=== PATIENT | male | born 1940 | race Caucasian/White ===

== ENCOUNTER 2022-06-19 20:04 | Inpatient (IN) | payer BC, SELFPAY ==
[2022-06-19] VITALS (13 sets, daily range): BP systolic 143–194; BP diastolic 84–155; PULSE 78–87; RESP 18; TEMP 36.9; O2SAT 98–100; BMI 25.8
--- NOTE | 2022-06-19 20:28 | CRLHL7_ITS ---
For Patients: As a result of the Century Cures Act, medical imaging exams and procedure reports are released immediately into your electronic medical record. You may view this report before your referring provider. If you have questions, please contact your health care provider. INDICATION: Mid abdominal pain. History of right middle lobe lung nodule. COMPARISON: Pet/CT scan from 09/04/2021 TECHNIQUE: CT examination of the abdomen and pelvis was performed with the uneventful intravenous administration of 75 cc of Isovue 370 while 3 mm thick axial sections were obtained from the lung bases through the pubic symphysis. Oral contrast was not administered. Please note that all CT scans at this facility use dose modulation, iterative reconstruction, and/or weight-based dosing when appropriate to reduce radiation dose to as low as reasonably achievable. FINDINGS: There is a now moderate amount of fecal material distributed throughout the colon consistent with new constipation. There is a new large amount of fecal material in the rectum consistent with fecal impaction. In the abdomen, the liver, spleen, pancreas, and adrenals are normal in appearance. The kidneys are normal in appearance. The gallbladder is normal in appearance. The abdominal aorta is normal in caliber with no sign of dilatation. There is no sign of retroperitoneal mass or adenopathy. Again seen is a small hiatal hernia. Again seen are several lines of surgical josh in the gastric fundus consistent with gastric bypass surgery. A small bowl anastamosis is again seen in the left upper quadrant with no sign of stricture. The distal stomach, the rest of the loops of small bowel, and colon in the abdomen are normal in appearance. In the pelvis, the appendix is nonvisualized, but there is no sign of an inflammatory process in the area of the appendix. There is new herniation of a loop of mildly distended small bowel into the right inguinal hernia which has increased in size and is now moderately enlarged. There is mild dilatation of the small bowel proximal to the hernia, indicating mild partial small bowel obstruction. There is no change in a small fat containing left inguinal hernia. Again seen is moderate sigmoid diverticulosis with no sign of diverticulitis. The prostate remains prominently enlarged and is otherwise normal in appearance. The urinary bladder is normal in appearance. There is no sign of pelvic or inguinal mass or adenopathy. There is no sign of free air or free fluid in the abdomen or pelvis. There is stable appearance of the bilobed nodule in the inferior right middle lobe measuring 2.1 x 1.1 centimeters. This was seen to have a very high uptake of radiotracer on the previous PET/CT scan. The persistence of these nodules is consistent with malignancy. There is stable mild curvilinear scarring in the posterior right lower lung. The rest of the chest is clear. Again seen is minimal scoliosis of the lumbar spine convex towards the left. There is moderate disc degenerative disease throughout the lumbar spine. Again seen are mild focal superior and inferior L4 endplate fractures. There is no sign of lytic or blastic lesions to suggest metastatic disease to the bone. IMPRESSION: No change in bilobed spiculated nodule in the anterior-lateral inferior right middle lobe, consistent with pulmonary malignancy. CT of the pelvis shows new herniation of a short loop of moderately distended small bowel into the right inguinal hernia which has increased in size and is now moderate in size. Mild dilatation of a short segment of small bowel proximal to the hernia indicating mild partial small bowel obstruction. New large amount of fecal material in the rectum consistent with fecal impaction. Stable prominent enlargement of the prostate. Stable moderate sigmoid diverticulosis with no sign of diverticulitis. CT of the abdomen shows stable changes of gastric bypass surgery. Stable small hiatal hernia. New findings of constipation. Please note that all CT scans at this facility use dose modulation, iterative reconstruction, and/or weight-based dosing when appropriate to reduce radiation dose to as low as reasonably achievable. Dictated by Abhay Mcginnis MD @ 06/19/2022 10:13:16 PM (Electronically Signed)
--- NOTE | 2022-06-19 20:56 | ED.ABDPAIN ---
HPI - Abdominal Pain General Chief Complaint: Abdominal Pain Stated Complaint: Possible hernia attack Time Seen by Provider: 06/19/22 20:19 History of Present Illness HPI narrative: Pt is a 81 year old gentleman in town visiting family who presents with 6 hours of abd pain in the mid abd. Pt was to have surgery for a hernia in [place] but could not as his did not have appropriate paperwork as pt has dementia. Pt has not had a bowel movement for several days. Pt is not sure if he has been passing gas. The pain is severe and in the mid abd. No fever, nausea or vomiting. Pt has had no cough or shortness of breath. Pt unable to get comfortable but does not appear to have taken any medication for the pain at home. Pt has had similar presentations in [place] which led to his scheduled surgery which was not perfomed. Related Data Allergies Allergy/AdvReac Type Severity Reaction Status Date / Time No Known Drug Allergies Allergy Verified 06/19/22 20:21 Review of Systems Status of ROS Reports: 10 or more systems reviewed and unremarkable except as noted in History and below [facility] Medical History (Updated 06/19/22 @ 23:38 by Addi Bautista MD) Dementia Diabetes type 2, controlled Surgical History (Updated 06/19/22 @ 22:22 by Addi Bautista MD) Bariatric surgery status Total knee replacement status Exam Narrative: Exam Narrative: EXAM GENERAL: Patient appears uncomfortable. EYES: No scleral icterus. THYROID: no thyroid nodules or thyromegaly. LYMPH: No supraclavicular or cervical lymphadenopathy. SKIN: Visible skin seen during exam normal or with benign process only. EXT: No dependent lower extremity pedal edema. HEART: Regular rate and rhythm with no murmurs, rubs, or gallops. LUNGS: Clear to auscultation bilaterally with no crackles or wheezes. ABD: Mildly distended with diffuse tenderness to palpation. PSYCH: Good eye contact, speech is not pressured. Const: Vital Signs, click to edit/add: Vital Signs - 24 hr 06/19/22 20:19 06/19/22 21:43 06/19/22 21:47 Temperature 98.4 F Pulse Rate 84 87 Pulse Rate [Right Pulse Oximeter] 84 Respiratory Rate 18 Blood Pressure 190/155 H Blood Pressure [Ri ght Upper Arm] 180/84 H Pulse Oximetry 99 99 100 Oxygen Delivery Me thod Room Air 06/19/22 22:00 06/19/22 22:02 06/19/22 22:30 Temperature Pulse Rate 87 83 78 Pulse Rate [Right Pulse Oximeter] Respiratory Rate Blood Pressure 171/126 H Blood Pressure [Ri ght Upper Arm] Pulse Oximetry 98 99 99 Oxygen Delivery Me thod 06/19/22 22:32 06/19/22 23:03 06/19/22 23:04 Temperature Pulse Rate 81 83 Pulse Rate [Right Pulse Oximeter] Respiratory Rate Blood Pressure 143/106 H 194/121 H Blood Pressure [Ri ght Upper Arm] Pulse Oximetry 99 98 Oxygen Delivery Me thod Course Course Hospital Course: Pt seen and examined. CT abd pelvis, urinalysis, cbc, amylase, comp panel ordered. Reevaluation(s) Reevaluation #1: Labs and CT reviewed Time: 23:35 Consultations Consultation #1: Case discussed with Dr Moseley General Surgery and Dr. Hurtado Hospitalist Vital Signs Vital signs: Initial Vital Signs Temperature 98.4 F 06/19/22 20:19 Temperature Source Temporal Artery Scan 06/19/22 20:19 Pulse Rate 84 06/19/22 20:19 Respiratory Rate 18 06/19/22 20:19 Blood Pressure 180/84 H 06/19/22 20:19 Blood Pressure Mean 116 06/19/22 20:19 Blood Pressure Position Sitting 06/19/22 20:19 Pulse Oximetry 99 06/19/22 20:19 Oxygen Delivery Method 06/19/22 20:19 Vital Signs Temperature 98.4 F 06/19/22 20:19 Pulse Rate 84 06/19/22 20:19 Respiratory Rate 18 06/19/22 20:19 Blood Pressure 180/84 H 06/19/22 20:19 Pulse Oximetry 99 06/19/22 20:19 Oxygen Delivery Method 06/19/22 20:19 Temperature 98.4 F 06/19/22 20:19 Pulse Rate 83 06/19/22 23:04 Respiratory Rate 18 06/19/22 20:19 Blood Pressure 194/121 H 06/19/22 23:03 Pulse Oximetry 98 06/19/22 23:04 Oxygen Delivery Method 06/19/22 20:19 MDM - Abdominal Pain MDM Narrative Medical decision making narrative: Pt with a history of r inguinal hernia presents with incarcerated hernia on CT with abd pain starting today. Pt seen and examined. CT and labs personally reviewed. Attempts made to reduce hernia. General surgery called and pt prepped for surgery. Lung lesion noted on CT appears to be chronic scar tissue per chart review. Differential Diagnosis Differential diagnosis: Likely abdominal pain, acute appendicitis, calculus of kidney, constipation, diverticulitis, gastroenteritis, pancreatitis and small bowel obstruction Lab Data Labs: Lab Results 06/19/22 06/19/22 06/19/22 Range/Units 20:26 21:03 21:03 WBC 6.87 (4.50-11.00) K/uL RBC 4.57 (4.30-5.90) m/uL Hgb 14.6 (13.5-17.5) gm/dL Hct 42.7 (37.0-53.0) % MCV 93 (80-100) fL MCH 32 (26-34) pg MCHC 34 (32-36) gm/dL RDW Coeff of Elias 12.2 (11.5-15.5) % Plt Count 170 (140-440) K/uL Neut % (Auto) 75.0 H (42.0-72.0) % Lymph % (Auto) 18.9 L (20-44) % [place] % (Auto) 4.2 (0.0-11.0) % Eos % (Auto) 0.9 (0.0-7.0) % Baso % (Auto) 0.3 (0.0-3.0) % Neut # (Auto) 5.20 (1.7-7.0) K/uL Lymph # (Auto) 1.30 (0.90-2.90) K/uL [place] # (Auto) 0.30 (0.00-0.90) K/UL Eos # (Auto) 0.06 (0.00-0.50) K/uL Baso # (Auto) 0.02 (0.00-0.30) K/uL Abs Immat Gran (auto) 0.05 (0.00-0.30) K/uL Imm/Tot Granulo (auto) 0.7 % Sodium 134 L (135-149) mmol/L Potassium 4.3 (3.6-5.1) mmol/L Chloride 99 (96-114) mmol/L Carbon Dioxide 26 (20-32) mmol/L BUN 18 (7-30) mg/dL Creatinine 0.8 (0.5-1.5) mg/dL Estimated Creat Clear 52.10 Estimated GFR 90 ml/min Glucose 242 H (60-115) mg/dL Lactate (0.5-1.9) mmol/L Calcium 9.2 (8.4-10.6) mg/dL Total Bilirubin 1.1 (0.1-1.5) mg/dL AST 25 (12-35) U/L ALT 21 (4-50) U/L Alkaline Phosphatase 73 (40-150) U/L Total Protein 7.7 (6.0-8.3) g/dL Albumin 4.9 (3.3-5.0) g/dL Amylase (18-89) U/L Urine Color Yellow (Yellow) Urine Appearance Clear (Clear) Urine pH 7.0 (5.0-8.5) Ur Specific [place] 1.020 (1.000-1.030) Urine Protein 1+ A (Negative) Urine Glucose (UA) 1+ A (Negative) Urine Ketones 2+ A (Negative) Urine Blood Negative (Negative) Urine Nitrite Negative (Negative) Urine Bilirubin Negative (Negative) Urine Urobilinogen 1.0 (0.2-1.0) Ur Leukocyte Esterase Negative (Negative) Urine RBC 0-2 (0-2) Urine WBC 0-2 (0-5) Ur Squamous Epith Cells None (None-Few) Urine Bacteria None (None) POC Creatinine (0.6-1.3) mg/dl 06/19/22 06/19/22 06/19/22 Range/Units 21:03 21:03 21:03 WBC (4.50-11.00) K/uL RBC (4.30-5.90) m/uL Hgb (13.5-17.5) gm/dL Hct (37.0-53.0) % MCV (80-100) fL MCH (26-34) pg MCHC (32-36) gm/dL RDW Coeff of Elias (11.5-15.5) % Plt Count (140-440) K/uL Neut % (Auto) (42.0-72.0) % Lymph % (Auto) (20-44) % [place] % (Auto) (0.0-11.0) % Eos % (Auto) (0.0-7.0) % Baso % (Auto) (0.0-3.0) % Neut # (Auto) (1.7-7.0) K/uL Lymph # (Auto) (0.90-2.90) K/uL [place] # (Auto) (0.00-0.90) K/UL Eos # (Auto) (0.00-0.50) K/uL Baso # (Auto) (0.00-0.30) K/uL Abs Immat Gran (auto) (0.00-0.30) K/uL Imm/Tot Granulo (auto) % Sodium (135-149) mmol/L Potassium (3.6-5.1) mmol/L Chloride (96-114) mmol/L Carbon Dioxide (20-32) mmol/L BUN (7-30) mg/dL Creatinine (0.5-1.5) mg/dL Estimated Creat Clear Estimated GFR ml/min Glucose (60-115) mg/dL Lactate 2.8 H (0.5-1.9) mmol/L Calcium (8.4-10.6) mg/dL Total Bilirubin (0.1-1.5) mg/dL AST (12-35) U/L ALT (4-50) U/L Alkaline Phosphatase (40-150) U/L Total Protein (6.0-8.3) g/dL Albumin (3.3-5.0) g/dL Amylase 73 (18-89) U/L Urine Color (Yellow) Urine Appearance (Clear) Urine pH (5.0-8.5) Ur Specific [place] (1.000-1.030) Urine Protein (Negative) Urine Glucose (UA) (Negative) Urine Ketones (Negative) Urine Blood (Negative) Urine Nitrite (Negative) Urine Bilirubin (Negative) Urine Urobilinogen (0.2-1.0) Ur Leukocyte Esterase (Negative) Urine RBC (0-2) Urine WBC (0-5) Ur Squamous Epith Cells (None-Few) Urine Bacteria (None) POC Creatinine 1.0 (0.6-1.3) mg/dl Discharge Plan Discharge Clinical Impression: Incarcerated hernia Patient Disposition: Admitted As Inpatient Condition: Stable Activity Level: Other Discharge Diet: Other
[2022-06-19 21:22] LABS: Basophils Absolute Auto 0.02 K/uL (0.00-0.30); Basophils Percent Auto 0.3 % (0.0-3.0); Eosinophils Absolute Auto 0.06 K/uL (0.00-0.50); Eosinophils Percent Auto 0.9 % (0.0-7.0); Hematocrit 42.7 % (37.0-53.0); Hemoglobin* 14.6 gm/dL (13.5-17.5); Immature Granulocytes Abs Auto 0.05 K/uL (0.00-0.30); Immature Granulocytes Pct Auto 0.7 %; Lymphocytes Percent Auto 18.9 % (20-44); Mean Corpuscular HGB Conc 34 gm/dL (32-36); Mean Corpuscular Hemoglobin 32 pg (26-34); Mean Corpuscular Volume 93 fL (80-100); Monocytes Percent Auto 4.2 % (0.0-11.0); Platelet Count* 170 K/uL (140-440); RDW Coefficient of Variation % 12.2 % (11.5-15.5); Red Blood Count 4.57 m/uL (4.30-5.90); White Blood Count* 6.87 K/uL (4.50-11.00)
[2022-06-19 21:23] LABS: Appearance Urine Clear (Clear); Bilirubin Urine Negative (Negative); Blood Urine Negative (Negative); Color Urine Yellow (Yellow); Glucose Urine 1+ (Negative); Ketones Urine 2+ (Negative); Leukocyte Esterase Urine Negative (Negative); Nitrite Urine Negative (Negative); Protein Urine 1+ (Negative)
[2022-06-19 21:30] LABS: Slide Review Reflex No
[2022-06-19 21:34] LABS: RBC Urine 0-2 (0-2); WBC Urine 0-2 (0-5)
[2022-06-19] MEDS: KETOROLAC 30 MG/ML inj IVP (21:37)
[2022-06-19 21:38] LABS: Albumin* 4.9 g/dL (3.3-5.0); Chloride* 99 mmol/L (96-114); Sodium* 134 mmol/L (135-149)
[2022-06-19] MEDS: 0.9 % SODIUM CHLORIDE 1000 ml 1,000 ML IV (21:38)
[2022-06-19 21:39] LABS: Potassium* 4.3 mmol/L (3.6-5.1)
[2022-06-19 21:41] LABS: Alkaline Phosphatase* 73 U/L (40-150); Aspartate Amino Transferase* 25 U/L (12-35); Bilirubin Total* 1.1 mg/dL (0.1-1.5); Blood Urea Nitrogen* 18 mg/dL (7-30); Carbon Dioxide* 26 mmol/L (20-32); Creatinine* 0.8 mg/dL (0.5-1.5); Estimated Glomerular Filt Rate 90 ml/min; Total Protein* 7.7 g/dL (6.0-8.3)
[2022-06-19 21:42] LABS: Alanine Aminotransferase* 21 U/L (4-50); Calcium* 9.2 mg/dL (8.4-10.6); Glucose* 242 mg/dL (60-115)
[2022-06-19 21:51] LABS: Amylase* 73 U/L (18-89)
[2022-06-19 22:25] LABS: Lactate* 2.8 mmol/L (0.5-1.9)
--- NOTE | 2022-06-19 23:22 | P.GSCN_ITS ---
History of Present Illness Consult details Date Seen: 06/19/22 Consult date: 06/19/22 Narrative: Patient was brought to the emergency department by his for worsening right groin pain. Patient does have a history of dementia and is a poor historian. Per the the pain started earlier today. He has had pain in this area before, with the known hernia on that side. As the pain continued to worsen throughout the day she came into the emergency department. Denies any vomiting. Last ate before noon. Patient has also been suffering from constipation with the thinking his last bowel movement was 4 days earlier. Per the his surgical history is positive for gastric bypass and a hernia repair, although she is unsure if it was the right or left side. They do live in the [facility], but are staying here with family until the of the year. Review of Systems Status of ROS: Reports: unobtainable due to mental status [facility] Medical History Dementia Diabetes type 2, controlled Surgical History Bariatric surgery status Total knee replacement status Meds Home Medications and Allergies Allergies Allergy/AdvReac Type Severity Reaction Status Date / Time No Known Drug Allergies Allergy Verified 06/19/22 20:21 Exam Narrative: Exam Narrative: General: Alert, no acute distress and nontoxic in appearance Respiratory: Equal breath rise bilaterally, maintained on room air CV: Regular rhythm rate, well perfused Abdomen: Soft, nontender and nondistended. Genitourinary: Right groin tenderness to palpation. Evidence of incarceration within a right hernia sac, unable to be reduced. Const: Vital Signs, click to edit/add: Vital Signs - 24 hr 06/19/22 20:19 Temperature 98.4 F Pulse Rate [Right Pulse Oximeter] 84 Respiratory Rate 18 Blood Pressure [Ri ght Upper Arm] 180/84 H Pulse Oximetry 99 Oxygen Delivery Me thod Room Air Results Labs Labs: Abnormal lab results 06/19/22 06/19/22 06/19/22 Range/Units 20:26 21:03 21:03 Neut % (Auto) 75.0 H (42.0-72.0) % Lymph % (Auto) 18.9 L (20-44) % Sodium 134 L (135-149) mmol/L Glucose 242 H (60-115) mg/dL Lactate (0.5-1.9) mmol/L Urine Protein 1+ A (Negative) Urine Glucose (UA) 1+ A (Negative) Urine Ketones 2+ A (Negative) 06/19/22 Range/Units 21:03 Neut % (Auto) (42.0-72.0) % Lymph % (Auto) (20-44) % Sodium (135-149) mmol/L Glucose (60-115) mg/dL Lactate 2.8 H (0.5-1.9) mmol/L Urine Protein (Negative) Urine Glucose (UA) (Negative) Urine Ketones (Negative) Diabetes panel 06/19/22 Range/Units 21:03 Sodium 134 L (135-149) mmol/L Potassium 4.3 (3.6-5.1) mmol/L Chloride 99 (96-114) mmol/L Carbon Dioxide 26 (20-32) mmol/L BUN 18 (7-30) mg/dL Creatinine 0.8 (0.5-1.5) mg/dL Glucose 242 H (60-115) mg/dL Calcium 9.2 (8.4-10.6) mg/dL AST 25 (12-35) U/L ALT 21 (4-50) U/L Alkaline Phosphatase 73 (40-150) U/L Total Protein 7.7 (6.0-8.3) g/dL Albumin 4.9 (3.3-5.0) g/dL Calcium panel 06/19/22 Range/Units 21:03 Calcium 9.2 (8.4-10.6) mg/dL Albumin 4.9 (3.3-5.0) g/dL Pituitary panel 06/19/22 Range/Units 21:03 Sodium 134 L (135-149) mmol/L Potassium 4.3 (3.6-5.1) mmol/L Chloride 99 (96-114) mmol/L Carbon Dioxide 26 (20-32) mmol/L BUN 18 (7-30) mg/dL Creatinine 0.8 (0.5-1.5) mg/dL Glucose 242 H (60-115) mg/dL Calcium 9.2 (8.4-10.6) mg/dL Adrenal panel 06/19/22 Range/Units 21:03 Sodium 134 L (135-149) mmol/L Potassium 4.3 (3.6-5.1) mmol/L Chloride 99 (96-114) mmol/L Carbon Dioxide 26 (20-32) mmol/L BUN 18 (7-30) mg/dL Creatinine 0.8 (0.5-1.5) mg/dL Glucose 242 H (60-115) mg/dL Calcium 9.2 (8.4-10.6) mg/dL Total Bilirubin 1.1 (0.1-1.5) mg/dL AST 25 (12-35) U/L ALT 21 (4-50) U/L Alkaline Phosphatase 73 (40-150) U/L Total Protein 7.7 (6.0-8.3) g/dL Albumin 4.9 (3.3-5.0) g/dL All other labs normal. Imaging CT scan - pelvis: report reviewed and image reviewed Assessment and Plan Assessment and plan (1) Incarcerated hernia: Status: Acute Plan Patient presented to the emergency department with evidence of a right inguinal hernia with incarcerated small bowel. This is unable to be reduced at bedside. Risks and benefits of operative intervention were discussed at length with the patient's , who signed for him today. Risks included, but were not limited to: Bleeding, infection, the possible need for small-bowel resection, risk of damage to surrounding structures and risk of recurrence. I reviewed with her that the risk of recurrence is affected by whether not I can use mesh. If there is evidence of bowel injury or necrosis in that situation I would perform a primary tissue repair, which increases the risk of recurrence to 33%. If the bowel is healthy in appearance and there is low concern for contamination I will place mesh in that situation decreasing the risk of recurrence to 5%. I also discussed briefly risks of postoperative complications such as pneumonia, MS, stroke and clot. All questions and concerns were addressed with the patient's agreeing to proceed. Additional findings on CT imaging are significant for a pulmonary nodule in the right middle lobe. This was reviewed with the patient's , who reports that this was 1st seen following an infection with COVID. This was worked up and thought to be related to scar tissue. There is also a large amount of fecal material in the rectum consistent with fecal impaction. Will plan to perform a disimpaction and enema in the operating room at the end of the hernia operation. -OR for open right inguinal hernia repair, possible small-bowel resection. Will plan for fecal distal impaction and enema at the end of the procedure.
--- NOTE | 2022-06-19 23:32 | ED.NURSE ---
Surgeon in room obtained informed consent.
[2022-06-20] VITALS (19 sets, daily range): BP systolic 116–168; BP diastolic 49–88; PULSE 76–95; RESP 12–16; TEMP 36.2–37.5; O2SAT 94–98; BMI 26.1
[2022-06-20 00:09] LABS: SARS PCR* Negative SARS-CoV-2 (Negative)
[2022-06-20] MEDS: LACTATED RINGERS 1000 ML 1,000 ML 100 ML IV ×2 (00:12→01:34)
--- NOTE | 2022-06-20 01:02 | P.NB_ITS ---
Nerve Block Nerve Block Time Seen by Provider: 00:20 Date Seen: 06/20/22 Type of block requested by surgeon for post-operative analgesia: TAP Side: bilateral Time out performed: Yes Verification of patient name: Yes Verification of date of : Yes Site marking: site marked Name of person performing procedure: Darryl Paul Continuous monitoring Was continuous monitoring of O2 sat, B/P, groundwater monitoring technician, recorded every 15 minutes?: Yes Procedure Checklist: sterile prep, needles and gloves Ultrasound guided. Images saved: Yes Medications given in 5ml increments after negative aspiration: Marcaine %: 0.25 mL: 30 Needle gauge: 20 and Exparel mL: 10 Needle gauge: 20 Patient tolerated procedure well: Yes Additional comments: Injected in 5ml increments after negative aspiration Block Charges Block Charge (with Pro Fee): TAP Bilateral Use of Ultrasound Machine for Block: Yes- US Guidance/pain block
[2022-06-20] MEDS: CEFAZOLIN 1 GM inj IVP (01:20)
[2022-06-20] MEDS: BUPIVACAINE 0.25% 30 ML INJECTION (01:50)
--- NOTE | 2022-06-20 02:18 | PM.GSPRC ---
Operative Note Date of procedure: 06/20/22 Type of Procedure: 1. Open right inguinal hernia repair 2. Fecal disimpaction Procedure Description: After discussing the risks and benefits of the procedure, the patient signed informed consent.? The operative site was marked and the patient was brought to the operating room and placed on the operating table in supine position.? Care was taken to pad the patient's pressure points.?? The patient was then intubated by anesthesia.?? The operative site was then prepped and draped in the usual sterile fashion.? A time-out was then performed. Local anesthetic was injected into the skin and subcutaneous tissue overlying the inguinal canal. An oblique incision would was made over the external ring. Dissection was carried down into the subcutaneous tissue using cautery until the external oblique fascia was encountered. This was cleared off. The external ring was identified, but this was slightly difficult secondary to overlying scar tissue from previous surgery. Once the external ring anatomy was confirmed I injected more of the local anesthetic, the external oblique fascia was incised using a knife. This was extended using the Metzenbaum scissors with care to dissect the underlying cord structures away before cutting. Evidence on evaluation of the inguinal canal of previously placed mesh, which was well incorporated medial and lateral. There was no evidence of recurrence along these edges. A bulging indirect hernia with incarcerated loop of bowel was present. The mesh around the internal inguinal ring was sharply dissected free from the hernia sac and cord structures. The opening was extended with heavy scissors cephalad. This allowed the incarcerated bowel to be reduced. Prior to reduction the bowel was closely examined and did not appear ischemic. The cord was cleared from the inside of the inguinal canal and looped with a [place] drain. A indirect inguinal hernia sac was identified. The hernia sac was dissected off of the cord structures. Once the hernia sac was circumferentially dissected free it was easily reduced into the abdomen. The internal inguinal ring was then reapproximated with interrupted 0 Nurolon suture. A primary tissue repair was made with interrupted 0 Nurolon sutures, bringing together the inguinal ligament and transversalis fascia, incorporating the previously placed mesh into the repair. The Wound was examined for hemostasis, which was excellent. The external oblique fascia was then reapproximated with absorbable suture. The wound was then closed in layers including Lola's fascia and the dermis with the cervical suture. The skin was then closed with a running subcuticular suture. Sterile dressings were applied. The patient was then repositioned into lithotomy. Lubrication was used to perform a digital rectal exam with a large amount of soft stool within the anal canal. A saline enema was performed and a large amount of stool manually disimpacted. Instrument sponge and needle counts were correct at the end of the case. The patient was woken and taken to the PACU in stable condition. ? Findings: Recurrent right inguinal indirect hernia with incarcerated bowel. Fecal impaction within the anal canal. Anesthesia: GETA Surgeon: Marlena Moseley MD Estimated blood loss (mL): 5 Condition: stable Disposition: PACU
--- NOTE | 2022-06-20 02:32 | W.ANESCHARGE ---
Anesthesia Charges Start Date/Time Anesthesia Start Date: 06/20/22 Anesthesia Start Time: 00:12 Stop Date/Time Anesthesia Stop Date: 06/20/22 Anesthesia Stop Time: 02:29 Summary Emergency: Yes Extremes of Age: Over 72-CPT 28148
[2022-06-20] MEDS: LACTATED RINGERS 1000 ML 1,000 ML 50 ML IV (03:15)
--- NOTE | 2022-06-20 08:23 | PC.NURSE ---
END OF SHIFT NOTE: DEMENTED PT THAT IS COOPERATIVE WITH CARES. PT IMPULSIVE AND ATTEMPTED TO GET OUT OF BED TO USE BATHROOM. PT DID NOT USE CALL LIGHT. VSS ON RA. AFEBRILE. INCISION TO RIGHT GROIN COVERED, CDI.
--- NOTE | 2022-06-20 10:13 | P.GSPN_ITS ---
Subjective Subjective Date Seen: 06/20/22 Interval history: Patient is doing well this morning. He denies any pain and has not needed any pain medicine. Patient was sitting comfortably in chair when I saw him and about to eat breakfast. Per the he was able to sleep overnight and seems a lot better this morning. Exam Narrative: Exam Narrative: General: Alert and oriented, no acute distress. Sitting comfortably in a chair. Abdomen: Soft, nontender nondistended. Dressings in place clean/dry/intact. Const: Vital Signs, click to edit/add: Vital Signs - 24 hr 06/19/22 20:19 06/19/22 21:43 06/19/22 21:47 Temperature 98.4 F Pulse Rate 84 87 Pulse Rate [Pulse Oximeter] Pulse Rate [Right Pulse Oximeter] 84 Respiratory Rate 18 Blood Pressure 190/155 H Blood Pressure [Ri ght Arm] Blood Pressure [Ri ght Upper Arm] 180/84 H Pulse Oximetry 99 99 100 Oxygen Delivery Me thod Room Air 06/19/22 22:00 06/19/22 22:02 06/19/22 22:30 Temperature Pulse Rate 87 83 78 Pulse Rate [Pulse Oximeter] Pulse Rate [Right Pulse Oximeter] Respiratory Rate Blood Pressure 171/126 H Blood Pressure [Ri ght Arm] Blood Pressure [Ri ght Upper Arm] Pulse Oximetry 98 99 99 Oxygen Delivery Me thod 06/19/22 22:32 06/19/22 23:03 06/19/22 23:04 Temperature Pulse Rate 81 83 Pulse Rate [Pulse Oximeter] Pulse Rate [Right Pulse Oximeter] Respiratory Rate Blood Pressure 143/106 H 194/121 H Blood Pressure [Ri ght Arm] Blood Pressure [Ri ght Upper Arm] Pulse Oximetry 99 98 Oxygen Delivery Me thod 06/19/22 23:25 06/19/22 23:30 06/19/22 23:32 Temperature Pulse Rate 84 81 82 Pulse Rate [Pulse Oximeter] Pulse Rate [Right Pulse Oximeter] Respiratory Rate Blood Pressure 178/84 H Blood Pressure [Ri ght Arm] Blood Pressure [Ri ght Upper Arm] Pulse Oximetry 98 99 98 Oxygen Delivery Me thod 06/19/22 23:45 06/20/22 02:25 06/20/22 02:50 Temperature 98.2 F Pulse Rate 84 86 85 Pulse Rate [Pulse Oximeter] Pulse Rate [Right Pulse Oximeter] Respiratory Rate 16 12 Blood Pressure 155/78 H 148/80 H Blood Pressure [Ri ght Arm] Blood Pressure [Ri ght Upper Arm] Pulse Oximetry 99 94 96 Oxygen Delivery Me thod Room Air 06/20/22 02:30 06/20/22 02:35 06/20/22 02:40 Temperature Pulse Rate 80 80 87 Pulse Rate [Pulse Oximeter] Pulse Rate [Right Pulse Oximeter] Respiratory Rate 12 12 12 Blood Pressure 152/73 H 150/72 H 153/80 H Blood Pressure [Ri ght Arm] Blood Pressure [Ri ght Upper Arm] Pulse Oximetry 95 94 96 Oxygen Delivery Me thod Room Air 06/20/22 02:45 06/20/22 02:55 06/20/22 03:04 Temperature 97.6 F Pulse Rate 76 79 Pulse Rate [Pulse Oximeter] Pulse Rate [Right Pulse Oximeter] Respiratory Rate 12 12 14 Blood Pressure 153/73 H 160/72 H Blood Pressure [Ri ght Arm] Blood Pressure [Ri ght Upper Arm] Pulse Oximetry 96 96 95 Oxygen Delivery Me thod Room Air Room Air 06/20/22 03:04 06/20/22 03:04 06/20/22 03:15 Temperature 97.2 F L 97.2 F L Pulse Rate 80 Pulse Rate [Pulse Oximeter] 80 77 Pulse Rate [Right Pulse Oximeter] Respiratory Rate 14 14 14 Blood Pressure Blood Pressure [Ri ght Arm] 166/86 H 166/86 H 168/88 H Blood Pressure [Ri ght Upper Arm] Pulse Oximetry 95 94 Oxygen Delivery Me thod Room Air Room Air Room Air 06/20/22 03:30 06/20/22 03:45 06/20/22 04:00 Temperature 97.7 F Pulse Rate Pulse Rate [Pulse Oximeter] 81 83 81 Pulse Rate [Right Pulse Oximeter] Respiratory Rate 12 14 14 Blood Pressure Blood Pressure [Ri ght Arm] 165/87 H 155/82 H 145/77 H Blood Pressure [Ri ght Upper Arm] Pulse Oximetry 94 95 95 Oxygen Delivery Me thod Room Air Room Air Room Air 06/20/22 04:30 06/20/22 05:00 Temperature 97.6 F 97.9 F Pulse Rate Pulse Rate [Pulse Oximeter] 80 82 Pulse Rate [Right Pulse Oximeter] Respiratory Rate 14 12 Blood Pressure Blood Pressure [Ri ght Arm] 153/79 H 147/67 H Blood Pressure [Ri ght Upper Arm] Pulse Oximetry 98 96 Oxygen Delivery Me thod Room Air Room Air Progress Note: A&P Assessment and plan (1) Incarcerated hernia: Status: Acute Assessment and Plan: Patient is status post open right inguinal hernia repair for incarcerated small bowel. This is a recurrent hernia and the defect was repaired primarily with incorporation of previous mesh/scar tissue. Patient is doing very well this morning. Benign exam with no complaints of pain and is tolerating a regular diet. He did have a large amount of stool within his rectal canal intraoperatively. This was removed with an enema and some manual disimpaction. Stool was soft and nonobstructing, but will continue patient on daily stool sof teners. Anticipate discharge later this afternoon.
--- NOTE | 2022-06-20 10:16 | PM.DS1 ---
DS: Providers Provider Date Seen: 06/20/22 Date of admission: 06/20/22 03:04 Primary care physician: Paolo Funes MD Admitting Clinician: Marlena Moseley MD Consults: 06/20/22 05:02 Consult to Occupational Therapy [CONS] Routine Comment: Reason(s) for OT Consult:: Difficulty Managing ADLs Any Restrictions?:: No Restrictions Consult to Physical Therapy [CONS] Routine Comment: Reason(s) for PT Consult:: Unstable Gait Any Restrictions?:: No Restrictions Attending Physician on discharge: Marlena Moseley MD DS: Summary Hospital Course Hospital Course: Patient presented to the emergency department with evidence of right inguinal hernia with incarcerated small bowel. This was unable to be reduced in the emergency department the patient was taken to the operating room for an open right inguinal hernia repair. Bowel was healthy in appearance and reduced intraoperatively. The defect was repaired primarily with incorporation of previous mesh/scar tissue. Patient did very well postoperatively. Pain was well controlled with no need for narcotic pain medicine. He was tolerating regular diet had return of bowel function. He did have constipation preoperatively, so recommended to that he continue on stool softeners daily, which she has at home. Will plan to follow up with the patient in 2 weeks. Time Spent with Patient Time attestation: Total time spent providing and/or coordinating discharge services: Exam Narrative: Exam Narrative: Please see progress note from same date. Const: Vital Signs, click to edit/add: Vital Signs - 24 hr 06/19/22 20:19 06/19/22 21:43 06/19/22 21:47 Temperature 98.4 F Pulse Rate 84 87 Pulse Rate [Pulse Oximeter] Pulse Rate [Right Pulse Oximeter] 84 Respiratory Rate 18 Blood Pressure 190/155 H Blood Pressure [Ri ght Arm] Blood Pressure [Ri ght Upper Arm] 180/84 H Pulse Oximetry 99 99 100 Oxygen Delivery Me thod Room Air 06/19/22 22:00 06/19/22 22:02 06/19/22 22:30 Temperature Pulse Rate 87 83 78 Pulse Rate [Pulse Oximeter] Pulse Rate [Right Pulse Oximeter] Respiratory Rate Blood Pressure 171/126 H Blood Pressure [Ri ght Arm] Blood Pressure [Ri ght Upper Arm] Pulse Oximetry 98 99 99 Oxygen Delivery Me thod 06/19/22 22:32 06/19/22 23:03 06/19/22 23:04 Temperature Pulse Rate 81 83 Pulse Rate [Pulse Oximeter] Pulse Rate [Right Pulse Oximeter] Respiratory Rate Blood Pressure 143/106 H 194/121 H Blood Pressure [Ri ght Arm] Blood Pressure [Ri ght Upper Arm] Pulse Oximetry 99 98 Oxygen Delivery Me thod 06/19/22 23:25 06/19/22 23:30 06/19/22 23:32 Temperature Pulse Rate 84 81 82 Pulse Rate [Pulse Oximeter] Pulse Rate [Right Pulse Oximeter] Respiratory Rate Blood Pressure 178/84 H Blood Pressure [Ri ght Arm] Blood Pressure [Ri ght Upper Arm] Pulse Oximetry 98 99 98 Oxygen Delivery Me thod 06/19/22 23:45 06/20/22 02:25 06/20/22 02:50 Temperature 98.2 F Pulse Rate 84 86 85 Pulse Rate [Pulse Oximeter] Pulse Rate [Right Pulse Oximeter] Respiratory Rate 16 12 Blood Pressure 155/78 H 148/80 H Blood Pressure [Ri ght Arm] Blood Pressure [Ri ght Upper Arm] Pulse Oximetry 99 94 96 Oxygen Delivery Me thod Room Air 06/20/22 02:30 06/20/22 02:35 06/20/22 02:40 Temperature Pulse Rate 80 80 87 Pulse Rate [Pulse Oximeter] Pulse Rate [Right Pulse Oximeter] Respiratory Rate 12 12 12 Blood Pressure 152/73 H 150/72 H 153/80 H Blood Pressure [Ri ght Arm] Blood Pressure [Ri ght Upper Arm] Pulse Oximetry 95 94 96 Oxygen Delivery Me thod Room Air 06/20/22 02:45 06/20/22 02:55 06/20/22 03:04 Temperature 97.6 F Pulse Rate 76 79 Pulse Rate [Pulse Oximeter] Pulse Rate [Right Pulse Oximeter] Respiratory Rate 12 12 14 Blood Pressure 153/73 H 160/72 H Blood Pressure [Ri ght Arm] Blood Pressure [Ri ght Upper Arm] Pulse Oximetry 96 96 95 Oxygen Delivery Me thod Room Air Room Air 06/20/22 03:04 06/20/22 03:04 06/20/22 03:15 Temperature 97.2 F L 97.2 F L Pulse Rate 80 Pulse Rate [Pulse Oximeter] 80 77 Pulse Rate [Right Pulse Oximeter] Respiratory Rate 14 14 14 Blood Pressure Blood Pressure [Ri ght Arm] 166/86 H 166/86 H 168/88 H Blood Pressure [Ri ght Upper Arm] Pulse Oximetry 95 94 Oxygen Delivery Me thod Room Air Room Air Room Air 06/20/22 03:30 06/20/22 03:45 06/20/22 04:00 Temperature 97.7 F Pulse Rate Pulse Rate [Pulse Oximeter] 81 83 81 Pulse Rate [Right Pulse Oximeter] Respiratory Rate 12 14 14 Blood Pressure Blood Pressure [Ri ght Arm] 165/87 H 155/82 H 145/77 H Blood Pressure [Ri ght Upper Arm] Pulse Oximetry 94 95 95 Oxygen Delivery Me thod Room Air Room Air Room Air 06/20/22 04:30 06/20/22 05:00 Temperature 97.6 F 97.9 F Pulse Rate Pulse Rate [Pulse Oximeter] 80 82 Pulse Rate [Right Pulse Oximeter] Respiratory Rate 14 12 Blood Pressure Blood Pressure [Ri ght Arm] 153/79 H 147/67 H Blood Pressure [Ri ght Upper Arm] Pulse Oximetry 98 96 Oxygen Delivery Me thod Room Air Room Air DS: Data Data Completed and Pending Labs on day of discharge: Labs from last 24 hours 06/19/22 06/19/22 06/19/22 23:09 21:03 21:03 WBC RBC Hgb Hct MCV MCH MCHC RDW Coeff of Elias Plt Count Neut % (Auto) Lymph % (Auto) Lanier % (Auto) Eos % (Auto) Baso % (Auto) Neut # (Auto) Lymph # (Auto) Lanier # (Auto) Eos # (Auto) Baso # (Auto) Abs Immat Gran (auto) Imm/Tot Granulo (auto) Sodium Potassium Chloride Carbon Dioxide BUN Creatinine Estimated Creat Clear Estimated GFR Glucose Lactate Calcium Total Bilirubin AST ALT Alkaline Phosphatase Total Protein Albumin Amylase 73 Urine Color Urine Appearance Urine pH Ur Specific Randolph Urine Protein Urine Glucose (UA) Urine Ketones Urine Blood Urine Nitrite Urine Bilirubin Urine Urobilinogen Ur Leukocyte Esterase Urine RBC Urine WBC Ur Squamous Epith Cells Urine Bacteria SARS-CoV-2 (PCR) Negative SARS-CoV-2 POC Creatinine 1.0 06/19/22 06/19/22 06/19/22 21:03 21:03 21:03 WBC 6.87 RBC 4.57 Hgb 14.6 Hct 42.7 MCV 93 MCH 32 MCHC 34 RDW Coeff of Elias 12.2 Plt Count 170 Neut % (Auto) 75.0 H Lymph % (Auto) 18.9 L Lanier % (Auto) 4.2 Eos % (Auto) 0.9 Baso % (Auto) 0.3 Neut # (Auto) 5.20 Lymph # (Auto) 1.30 Lanier # (Auto) 0.30 Eos # (Auto) 0.06 Baso # (Auto) 0.02 Abs Immat Gran (auto) 0.05 Imm/Tot Granulo (auto) 0.7 Sodium 134 L Potassium 4.3 Chloride 99 Carbon Dioxide 26 BUN 18 Creatinine 0.8 Estimated Creat Clear 52.10 Estimated GFR 90 Glucose 242 H Lactate 2.8 H Calcium 9.2 Total Bilirubin 1.1 AST 25 ALT 21 Alkaline Phosphatase 73 Total Protein 7.7 Albumin 4.9 Amylase Urine Color Urine Appearance Urine pH Ur Specific Randolph Urine Protein Urine Glucose (UA) Urine Ketones Urine Blood Urine Nitrite Urine Bilirubin Urine Urobilinogen Ur Leukocyte Esterase Urine RBC Urine WBC Ur Squamous Epith Cells Urine Bacteria SARS-CoV-2 (PCR) POC Creatinine 06/19/22 20:26 WBC RBC Hgb Hct MCV MCH MCHC RDW Coeff of Elias Plt Count Neut % (Auto) Lymph % (Auto) Lanier % (Auto) Eos % (Auto) Baso % (Auto) Neut # (Auto) Lymph # (Auto) Lanier # (Auto) Eos # (Auto) Baso # (Auto) Abs Immat Gran (auto) Imm/Tot Granulo (auto) Sodium Potassium Chloride Carbon Dioxide BUN Creatinine Estimated Creat Clear Estimated GFR Glucose Lactate Calcium Total Bilirubin AST ALT Alkaline Phosphatase Total Protein Albumin Amylase Urine Color Yellow Urine Appearance Clear Urine pH 7.0 Ur Specific Randolph 1.020 Urine Protein 1+ A Urine Glucose (UA) 1+ A Urine Ketones 2+ A Urine Blood Negative Urine Nitrite Negative Urine Bilirubin Negative Urine Urobilinogen 1.0 Ur Leukocyte Esterase Negative Urine RBC 0-2 Urine WBC 0-2 Ur Squamous Epith Cells None Urine Bacteria None SARS-CoV-2 (PCR) POC Creatinine Discharge Plan Discharge Disposition: Home, Self-Care Date of Admission: 06/20/22 03:04 Attending Provider on Discharge: Marlena Moseley Primary Care Provider: Paolo Funes Condition: Improved Anticipated Discharge Date/Time: 06/20/22 10:18 Discharge Medications: Continued metformin 500 mg tablet 500 mg PO BID Label Comments: TAKE 1 TABLET BY MOUTH TWICE DAILY WITH MEALS Discharge Orders: Discharge Order (Routine); Ordered 06/20/22 Ordered By: Marlena Moseley Patient Education: Inguinal Hernia Repair (DC), Post-Operative Instructions: Hernia Repair Additional Instructions: Okay to remove dressing tomorrow (06/21/2022). No need to place any additional outer dressings. Okay to shower starting tomorrow, do not soak in a bath or swim for 2 weeks. Please call the clinic if the patient starts to have redness, increasing pain or drainage from the incision site. Please call the clinic if the patient's ice to have worsening abdominal pain or fevers. Activity as tolerated. Avoid strenuous activity. No lifting greater than 20 lb for 6 weeks. Activity Level: No strenuous activity and Other Discharge Diet: Regular and Other Follow Up Appointments: Marlena Moseley MD [Staff Physician] - 07/01/22 1:00 pm ([facility]) Paolo Funes MD [Primary Care Provider] - Forms: [employer] Info Instructions
--- NOTE | 2022-06-20 16:06 | PC.NURSE ---
Pt. is alert and cooperative w/cares. Pt. has dementia, present at bedside for the whole day. VSS and Afebrile this shift. Pt. denies N/V/SOB or pain. Incision to right groin covered and CDI. Pt. was discharged via wheelchair accompained by spouse at 1515. pt. belongings list and discharge instructions signed by spouse and verbalized understanding. pt. IV on left AC and left wrist removed intact.
== END 2022-06-20 15:15 | disposition home or self-care (01) | DRG 228 ==
LOC: ED 23:05 → SS 23:20 → MEDSURG 06-20 02:59 → SS 06-20 09:06 → MEDSURG 06-20 09:06
PROVIDERS: Admitting Provider Surgery; Emergency Provider Internal Medicine; PCP Family Medicine; Visit Provider Surgery
PROC: 0YQ50ZZ Repair Right Inguinal Region, Open Approach (ICD-10-PCS; principal; 2022-06-20 00:15)
DX: K40.31 Unilateral inguinal hernia, with obstruction, without gangrene, recurrent (principal); K56.41 Fecal impaction; F03.90 Unspecified dementia, unspecified severity, without behavioral disturbance, psychotic disturbance, mood disturbance, and anxiety; E11.9 Type 2 diabetes mellitus without complications; Z98.84 Bariatric surgery status; R91.1 Solitary pulmonary nodule; U09.9 Post COVID-19 condition, unspecified; Z96.659 Presence of unspecified artificial knee joint
CPT/HCPCS: 00830; 36415; 64488; 74177; 76942; 80053; 81003; 81015; 82150; 82565; 83605; 85025; 87635; 97116; 97162; 97165; 97530; 97535; 99100; 99140; 99283; 99285; C9290; J0330; J0690; J1170; J1885; J2405; J2704; J3010; J3490; J7030; J7120; Q9967

== ENCOUNTER 2024-11-08 17:24 | Observation (INO) | payer MEDICARE, SELFPAY ==
[2024-11-08] VITALS (13 sets, daily range): BP systolic 89–152; BP diastolic 54–89; PULSE 91–120; RESP 16–20; TEMP 35.6–37.3; O2SAT 93–96
--- OUTSIDE RECORDS SUMMARY | 2024-11-08 17:26 | XMS_ITS | Clinical Summary ---
Author Organization [facility] Address [address] [place] [id number] Care Team Providers Care Chief Writer Name Role Phone Pcp, No Primary Care Provider Unavailabl e Allergies No known active allergies Medications acetaminophen (TYLENOL EXTRA STRGTH) 500 mg tablet Max acetaminophen dose: 4000mg in 24 hrs. PRN 0 1 Active Calcium Citrate 250 mg calcium tablet Take 2 Tablets (500 mg) by mouth 2 times daily with meals. 240 Tablet 5 1 Active docusate (COLACE) 100 mg capsule PRN 0 1 Active Kgmfi-3-HEE-EP A-Fish Oil 1,000 mg (120 mg-180 mg) cap Take 1 Capsule (1,000 mg) by mouth. 0 1 Active multivitamin (MVI) tablet Take 1 Tablet by mouth once daily. 0 1 Active cyanocobalamin (Vitamin B-12) 1,000 mcg tablet Take 1 Tablet (1,000 mcg) by mouth once daily. 90 Tablet 3 1 Active blood-glucose meterIndicatio ns:Type 2 diabetes mellitus without complication, without long-term current use of insulin (HC) Dispense meter, test strips, lancets covered by pt ins. E11.9 NIDDM type II - Test 1 time/day 1 Each 3 Active blood sugar diagnostic (OneTouch Ultra Test) stripIndicatio ns:Type 2 diabetes mellitus without complication, without long-term current use of insulin (HC) TEST ONCE DAILY 100 Each 3 3 Active metFORMIN (GLUCOPHAGE) 500 mg tabletIndicati ons:Type 2 diabetes mellitus without complication, without long-term current use of insulin (HC) Take 1 Tablet (500 mg) by mouth two times daily with meals. 180 Tablet 4 Active eszopiclone (LUNESTA) 1 mg tabletIndicati ons:Insomnia, idiopathic Take 1 Tablet (1 mg) by mouth at bedtime. 30 Tablet 1 4 Active Active Problems Problem Noted Date Diagnosed Date Type 2 diabetes mellitus wit h other specified complication, unspecified whether care home insulin use 04/27/2024 Moderate dementia without behavioral disturbance 06/18/2023 Other headache syndrome 07/23/2022 Encounters Date Type Department Care Team Description 11/08/2024 Telephone [facility] [address] [place] [address] VotelPaolo MD Questions from Last 3 Months Immunizations Immunization Administration Dates Next Due Influenza A (H1N1), Inactivated (Age >=3 Years) 07/17/2009 Influenza, Inactivated IIV3 (Age 65+ Years) Preserv Free 04/27/2024 Pneumococcal conj 13-Valent (Prevnar 13) 014 Tdap, Unspecified 04/16/2019 Family History Medical History Relation Name Comments Diabetes Father Alzheimer's disease Mother Relation Name Status Comments Father Mother Social History Tobacco Use Types Packs/Day Years Used Date Smoking Tobacco: Never Smokeless Tobacco: Never Tobacco Cessation:Counseling Given: Yes Alcohol Use Standard Drinks/Week Comments Not Currently 0 (1 standard drink = 0.6 oz pur e alcohol) PHQ-2 Answer Date Recorded PHQ-2 TOTAL SCORE 0 04/27/2024 Social Connections Answer Date Recorded Do you often feel lonely or isolated from those around you? 0 07/27/2024 Financial Resource Strain Answer Date R ecorded Difficulty of Paying Living Expenses 3 07/27/2024 Difficulty of Paying Living Expenses Not on file 07/27/2024 Food Insecurity Answer Date Recorded Do you worry your food will run out before you are able to buy more? 1 07/27/2024 Transportation Needs Answer Date Record ed Does lack of transportation keep you from medica l appointments? 1 07/27/2024 Does lack of transportation keep you from work, meetings or getting things that you need? 1 07/27/2024 Housing Stability Answer Date Recorded What is your housing situation today? 1 07/27/2024 Utilities Answer Date Recorded Do you have trouble paying f or utilities (for example, heat, electricity, water, phone)? 1 07/27/2024 Sex and Gender Information Value Date Recorded Sex Assigned at Not on file Legal Sex Male 3:34 PM CDT Gender Identity Not on file Sexual Orientation Not on file Obstetrics History Last Filed Vital Signs Vital Sign Reading Time Taken Comments Blood Pressure 118/76 07/27/2024 1:52 PM CULTURE MANAGER Pulse 112 07/27/2024 1:52 PM CULTURE MANAGER Temperature 36.3 C (97.4 F) 07/23/2022 3:13 PM CULTURE MANAGER Respiratory Rate - - Oxygen Saturation 98% 07/27/2024 1:52 PM CULTURE MANAGER Inhaled Oxygen Concentration - - Weight 56.2 kg (123 lb 14.4 oz) 07/27/2024 1:52 PM CULTURE MANAGER Height 165.1 cm (5' 5) 04/27/2024 4:13 PM CDT Body Mass Index 20.62 04/27/2024 4:13 PM CDT Plan of Treatment Upcoming Encounters Date Type Department Care Team (Late st Contact Info) Description 11/14/2024 3:45 PM CDT Office Visit [facility] [address] [place] [address] VotelPaolo MD [address] [place] [address] Health Maintenance Due Date Last Done Comments Zoster (shingles) series for age 50+ (1 of 2) 1992 Pneumococcal series for age 50+ (2 of 2 - PPSV23) 07/21/2014 05/26/2014 RSV vaccine for adults or pr egnancy (1 - 1-dose 75+ series) 2017 COVID-19 vaccine series ( - 2023- season) 2024 BMI (ht and wt on same day) for age 18+ 04/27/2025 04/27/2024, 06/18/2023, 04/15/2021 Depression screening for age 12+ 04/27/2025 04/27/2024, 06/18/2023, 04/15/2021 Medicare Wellness for age 65+ 04/28/2025 04/27/2024 Tetanus booster 04/16/2029 04/16/2019 Tdap Completed 04/16/2019 Influenza Vaccine Completed 04/27/2024 Insurance MEDICARE PART A HB ONLY MEDICARE PART B HB ONLY MEDICARE PB ONLY Member Subscriber Plan / Payer ( fective 2024-Present) Name:Virgil, Thong Member ID:[id number] Relation to Subscriber:Self Name:Thong Bains Subscriber ID:[id number] Payer ID:Not on file Group ID:Not on file Type:Not on file Address: ATTN: CLAIMS [id number] Advance Directives Documents on File Type Date Recorded 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 PCP - General 07/23/22
--- NOTE | 2024-11-08 18:06 | CRLHL7_ITS ---
For Patients: As a result of the Century Cures Act, medical imaging exams and procedure reports are released immediately into your electronic medical record. You may view this report before your referring provider. If you have questions, please contact your health care provider. INDICATION: Weakness, diffuse abdominal pelvic pain TECHNIQUE: CT Abdomen and pelvis with i.v. contrast. Coronal and sagittal reformats were obtained. CONTRAST: 77 mL Isovue 370 COMPARISON: 06/19/2022 FINDINGS: Liver: Mild fatty infiltration of the liver is present. Spleen: Unremarkable. Pancreas: Unremarkable. Gallbladder: Unremarkable. Kidney: Unremarkable. No kidney or ureteral stones or obstruction seen. Adrenal: Unremarkable. Bowel: A massive amount of stool is present in the rectal vault. Previous antegastric-antecolic gastric bypass noted with no definite obstruction of the biliopancreatic limb or Devan-en-Y loop seen. The appendix is normal in appearance and size. Vascular: Unremarkable. Lymph: Unremarkable. Peritoneum: Unremarkable. No pneumoperitoneum is seen. Pelvis: There is a new fluid density structure measuring 3.4 x 2.2 cm in the left inguinal canal which may represent a small inguinal hernia with ascitic fluid. The right inguinal hernia seen on prior examination is no longer visualized. Moderate enlargement of the prostate gland is noted. Soft tissue: There is an oblong fluid collection running along the course of the right iliopsoas muscle measuring 7 x 1 cm extending inferiorly from the anterolateral disc space of L4-5. It has small foci of internal gas present. Bone: Unremarkable for age. IMPRESSIONS: 1. A massive amount of stool is present in the rectal vault. Correlation with physical exam recommended to exclude fecal impaction. 2. Moderate enlargement of the prostate gland is noted. Correlation with physical examination, PSA level, and/or MRI are recommended. 3. There is an oblong fluid collection running along the course of the right iliopsoas muscle measuring 7 x 1 cm extending inferiorly from the anterolateral disc space of L4-5. It has small foci of internal gas present. The possibility of a paraspinal abscess should be considered. Dictated by Lenny Christopher MD @ 11/08/2024 9:06:34 PM Please note that all CT scans at this facility use dose modulation, iterative reconstruction, and/or weight-based dosing when appropriate to reduce radiation dose to as low as reasonably achievable. Dictated by: Lenny Christopher MD @ 11/08/2024 21:06:37 (Electronically Signed)
--- NOTE | 2024-11-08 18:06 | CRLHL7_ITS ---
For Patients: As a result of the Century Cures Act, medical imaging exams and procedure reports are released immediately into your electronic medical record. You may view this report before your referring provider. If you have questions, please contact your health care provider. Indication: Trauma. Technique: CT of the cervical spine performed without IV contrast. Comparison: None available. Findings: The cervical vertebral body heights are maintained without fracture. [id number] multilevel disc height loss and degeneration. Moderate spondylosis with varying degrees of mild spinal canal with moderate to severe neural foraminal narrowing. The visualized lung apices are clear. No prevertebral soft tissue swelling. Impression: 1. No acute osseous injury involving the cervical spine. 2. Moderate spondylosis. Please note that all CT scans at this facility use dose modulation, iterative reconstruction, and/or weight-based dosing when appropriate to reduce radiation dose to as low as reasonably achievable. Dictated by Jose Ding MD @ 11/08/2024 8:55:08 PM (Electronically Signed)
--- NOTE | 2024-11-08 18:06 | CRLHL7_ITS ---
For Patients: As a result of the Century Cures Act, medical imaging exams and procedure reports are released immediately into your electronic medical record. You may view this report before your referring provider. If you have questions, please contact your health care provider. Indication : Weakness. Diffuse pain. Technique : CT of the brain without intravenous contrast. Comparison: None relevant available at the time of interpretation. Findings: Moderate patient motion related artifact. No acute blurring of the rowe-white differentiation. There is no intracranial hemorrhage. The ventricles are proportionate to the cerebral sulci. The 4th ventricle is midline. Basal cisterns appear patent. No abnormal extra-axial fluid collection identified. Severe parenchymal volume loss. There is severe patchy periventricular hypodensity, favored to represent chronic ischemic microvascular disease. Scattered encephalomalacia gliosis left frontal and parietal lobes. There is no intracranial mass, mass effect or midline shift identified. No depressed calvarial fracture. Mild paranasal sinus mucosal disease. Impression: 1. No acute intracranial process. 2. Severe chronic ischemic microvascular disease. 3. Scattered encephalomalacia gliosis left frontal and parietal lobes. Please note that all CT scans at this facility use dose modulation, iterative reconstruction, and/or weight-based dosing when appropriate to reduce radiation dose to as low as reasonably achievable. Dictated by Jose Ding MD @ 11/08/2024 8:52:37 PM (Electronically Signed)
--- NOTE | 2024-11-08 18:06 | CRLHL7_ITS ---
For Patients: As a result of the Century Cures Act, medical imaging exams and procedure reports are released immediately into your electronic medical record. You may view this report before your referring provider. If you have questions, please contact your health care provider. INDICATION: Weakness, diffuse chest pain, fall 2 days ago TECHNIQUE: CT chest without i.v. contrast. Coronal and sagittal reformats were obtained. COMPARISON: 04/30/2021 FINDINGS: The sensitivity and specificity of the exam are moderately limited by beam hardening artifacts from scanning with the arms by the patient`s side. Cardiovascular: The heart has an unremarkable appearance and size. The pulmonary arteries are unremarkable in appearance. No sign of aneurysm seen in the thoracic aorta. The presence of aortic dissection cannot be evaluated without the use of intravenous contrast. Severe atherosclerotic calcifications are noted in the coronary arteries. Mediastinum: No mass or adenopathy seen. Lung: Mild parenchymal scarring is seen in the mid and lower lung zones and decreased from prior examination. Mild peripheral mucous plugging is seen in the left lower lobe. Pleura and pericardium: No sign of pleural effusion seen. No significant pericardial effusion is present. Chest wall and axilla: No mass or adenopathy seen. Bone: Interval development of a mild compression deformity along the superior endplate of T11 and is of indeterminate age. IMPRESSIONS: 1. Severe atherosclerotic calcifications are noted in the coronary arteries. 2. Interval development of a mild compression deformity along the superior endplate of T11 and is of indeterminate age. Dictated by Lenny Christopher MD @ 11/08/2024 9:12:29 PM Please note that all CT scans at this facility use dose modulation, iterative reconstruction, and/or weight-based dosing when appropriate to reduce radiation dose to as low as reasonably achievable. Dictated by: Lenny Christopher MD @ 11/08/2024 21:12:32 (Electronically Signed)
[2024-11-08] MEDS: LACTATED RINGERS 1000 ML 1,000 ML IV (18:10)
[2024-11-08 18:32] LABS: Basophils Percent Auto 0.1 % (0.0-3.0); Eosinophils Percent Auto 0.1 % (0.0-7.0); Hematocrit 51.1 % (37.0-53.0); Hemoglobin* 16.4 gm/dL (13.5-17.5); Immature Granulocytes Pct Auto 0.3 %; Lymphocytes Percent Auto 7.1 % (20-44); Mean Corpuscular HGB Conc 32 gm/dL (32-36); Mean Corpuscular Hemoglobin 32 pg (26-34); Mean Corpuscular Volume 99 fL (80-100); Monocytes Percent Auto 4.4 % (0.0-11.0); Platelet Count* 211 K/uL (140-440); RDW Coefficient of Variation % 14.3 % (11.5-15.5); Red Blood Count 5.18 m/uL (4.30-5.90); White Blood Count* 11.03 K/uL (4.50-11.00)
[2024-11-08 18:39] LABS: Slide Review Reflex No
[2024-11-08 18:41] LABS: Creatinine, Point-of-Care* 2.2 mg/dl (0.6-1.3)
[2024-11-08 18:44] LABS: Chloride* 118 mmol/L (96-114); Sodium* 155 mmol/L (135-149)
[2024-11-08 18:45] LABS: Potassium* 4.3 mmol/L (3.6-5.1)
[2024-11-08 18:47] LABS: Alanine Aminotransferase* 25 U/L (4-50); Alkaline Phosphatase* 105 U/L (40-150); Anion Gap 15 mEq/L (7-15); Aspartate Amino Transferase* 25 U/L (12-35); Bilirubin Total* 1.5 mg/dL (0.1-1.5); Blood Urea Nitrogen* 86 mg/dL (7-30); Calcium* 10.3 mg/dL (8.4-10.6); Carbon Dioxide* 22 mmol/L (20-32); Creatinine* 2.1 mg/dL (0.5-1.5); Estimated Glomerular Filt Rate 31 ml/min; Magnesium* 2.5 mg/dL (1.5-2.6); Total Protein* 7.5 g/dL (6.0-8.3)
[2024-11-08 18:50] LABS: Glucose* 441 mg/dL (60-115)
--- NOTE | 2024-11-08 18:56 | ED.AMS ---
HPI - Altered Mental Status General Date Seen: 11/08/24 Chief Complaint: Altered Mental Status Stated Complaint: not eating, drinking, weak, weightloss, fatigue Time Seen by Provider: 11/08/24 17:53 Source: family Mode of arrival: wheelchair Limitations: altered mental status History of Present Illness HPI narrative: Patient is a 84-year-old with a history of dementia he is usually able to walk and talk without issue presenting to emergency department for weakness and altered mental status. He is here with his children. They state that over the past week to week and a half he has had decreased oral intake has been very weak, has been losing weight, and has been less talkative. They state he is barely gotten out of bed for the past week due to his weakness. This is very unusual for him despite his dementia. They state usually is talking to you no problem although it is occasionally confusing and he is able to get up and move by himself. Or now he is barely talking. Usually he eats normal foods and feeds himself but now he is only taking pureed food if that. He was able eat some pureed food this morning. They have been trying to have him drink fluids. They have not noticed any choking episode after drinking fluids. Of note noticed any fevers or chills. Have not noticed any difficulty breathing. Patient is unable answer questions. Family does states he fell a couple days ago Related Data Home Medications ?Medication ?Instructions ?Recorded ?Confirmed metformin 500 mg tablet 500 mg PO BID 06/20/22 06/20/22 Allergies Allergy/AdvReac Type Severity Reaction Status Date / Time No Known Drug Allergies Allergy Verified 06/19/22 20:21 Review of Systems Status of ROS: Reports: unobtainable due to mental status [facility] Medical History (Updated 11/08/24 @ 22:14 by Milad Byrd DO) Severe dementia ?F03.C0 - Unspecified dementia, severe, without behavioral disturbance, psychotic disturbance, mood disturbance, and anxiety (ICD-10) Diabetes type 2, controlled ?E11.9 - Type 2 diabetes mellitus without complications (ICD-10) Surgical History (Updated 11/08/24 @ 19:00 by Shirley Reilly MD) Bariatric surgery status ?Z98.84 - Bariatric surgery status (ICD-10) Total knee replacement status ?Z96.659 - Presence of unspecified artificial knee joint (ICD-10) Social History Highest level of school completed/degree received: high school graduate Smoking Status: Never smoker Second hand tobacco smoke exposure: No How often do you have a drink containing alcohol: never How often do you have six or more drinks on one occasion: Never AUDIT-C Alcohol total score: 0 Non-prescribed substance use: denies use Caffeine: Yes (2CUPS COFFEE DAILY) service: Yes Exam Narrative: Exam Narrative: Const: Thin and frail Eyes: PERRL, no conjunctival injection, and symmetrical lids HENT: Atraumatic external nose and ears. Moist mucous membranes. Neck: Symmetric, trachea midline, No thyromegaly. CVS: Tachycardic, No murmurs or gallops. Peripheral pulses 2+ and equal in all extremities RESP: Unlabored respiratory effort. Clear to auscultation bilaterally. GI: Diffuse tenderness everywhere, Nondistended, No rebound or guarding. MSK:Extremities w/o deformity. Diffuse tenderness everywhere Skin: Warm, Dry. No rashes or lesions. Neuro: Difficult to evaluate neuro status due to his altered mental status. Unable to follow commands Psych: Very sleepy, hard to arouse Const: Vital Signs, click to edit/add: Vital Signs - 24 hr 11/08/24 17:41 11/08/24 17:53 11/08/24 18:00 Temperature 96.1 F L Pulse Rate Pulse Rate [Apical ] 120 H Respiratory Rate Blood Pressure 117/77 116/82 Blood Pressure [Le ft Upper Arm] 89/56 L Pulse Oximetry Oxygen Delivery Me thod 11/08/24 18:31 11/08/24 18:41 11/08/24 19:02 Temperature Pulse Rate 116 H 112 H 105 H Pulse Rate [Apical ] Respiratory Rate Blood Pressure 122/82 117/82 141/82 H Blood Pressure [Le ft Upper Arm] Pulse Oximetry 93 95 95 Oxygen Delivery Me thod Room Air 11/08/24 19:21 11/08/24 19:42 11/08/24 20:51 Temperature Pulse Rate 103 H 102 H 95 Pulse Rate [Apical ] Respiratory Rate 16 Blood Pressure 152/84 H 135/89 98/62 Blood Pressure [Le ft Upper Arm] Pulse Oximetry 94 95 95 Oxygen Delivery Me thod 11/08/24 21:53 11/08/24 22:23 Temperature 97.3 F L Pulse Rate 96 Pulse Rate [Apical ] 91 Respiratory Rate 18 Blood Pressure 106/61 Blood Pressure [Le ft Upper Arm] 106/61 Pulse Oximetry 96 94 Oxygen Delivery Me thod Room Air Course Vital Signs Vital signs: Initial Vital Signs Temperature 96.1 F L 11/08/24 17:41 Temperature Source Temporal Artery Scan 11/08/24 17:41 Pulse Rate 120 H 11/08/24 17:41 Pulse Rhythm Regular 11/08/24 17:41 Blood Pressure 89/56 L 11/08/24 17:41 Blood Pressure Mean 67 L 11/08/24 17:41 Vital Signs Temperature 96.1 F L 11/08/24 17:41 Pulse Rate 120 H 11/08/24 17:41 Blood Pressure 89/56 L 11/08/24 17:41 Temperature 97.3 F L 11/08/24 22:23 Pulse Rate 91 11/08/24 22:23 Respiratory Rate 18 11/08/24 22:23 Blood Pressure 106/61 11/08/24 22:23 Pulse Oximetry 94 11/08/24 22:23 Oxygen Delivery Method Room Air 11/08/24 22:23 Medications Administered Medications: Discontinued Medications Generic Name Dose Route Start Last Admin Trade Name Rejiq PRN Reason Stop Dose Admin Lactated Ringer's 1,000 mls @ 1,000 mls/hr 11/08/24 18:06 11/08/24 18:30 Lactated Ringers 1000 Ml IV 11/08/24 19:05 Infused .Q1H ONE Infusion MDM - Altered Mental Status MDM Narrative Medical decision making narrative: Patient is an 84-year-old male presenting to the emergency department for weakness. The differential diagnosis of generalized weakness is broad and includes infection, electrolyte abnormalities, ACS, arrhythmia, hypoglycemia, electrolyte abnormality, respiratory failure, anemia, hypothyroidism, dehydration, medication induced etc. he does appear very frail and is tachycardic. Will give him fluids. He is satting 93% on room air and does not have a fever. Initially was hypertensive in your eye but now his blood pressure is 122/82 [address] in [address] Unable to fully arousable to asking many questions but he is tender wherever I touch him. It is really hard to say if he has infection. Will do a CT scan of his head and cervical spine was scan his chest, abdomen, pelvis to look for any possible abnormalities. Will also order a CBC, CMP, magnesium, EKG, troponin, COVID/flu/RSV, urinalysis. Patient's lab work showed an unconcerning CBC but he is hyperglycemic, hypernatremic, has an DIONI and elevated troponin. Urinalysis shows no concerning abnormality is viral swabs are negative. His soto scan showed no concerning findings in the head, cervical spine, chest. CT scan of the abdomen pelvis shows severe constipation and an abscess running along the right iliopsoas muscle. This will need an MRI for better evaluation. That cannot be done here tonight. With everything going on with him and his dementia I had a long conversation with the family about the patient going on comfort cares. I explained to them that if they want full treatment for him he will need to be transferred and it is likely that he would not survive any surgery that would be required to fix this likely abscess. The patient's daughter spoke to her brother is in the decided to let him go 1 comfort cares. Due to this he will be accepted to the hospital. Of note his troponin did come down slightly to 0.16. Also family notes the patient has been complaining about back pain but they cannot specify where his pain was. Patient will be admitted to the hospitalist service Lab Data Labs: Lab Results 11/08/24 11/08/24 11/08/24 Range/Units 18:06 18:22 18:23 WBC 11.03 H (4.50-11.00) K/uL RBC 5.18 (4.30-5.90) m/uL Hgb 16.4 (13.5-17.5) gm/dL Hct 51.1 (37.0-53.0) % MCV 99 (80-100) fL MCH 32 (26-34) pg MCHC 32 (32-36) gm/dL RDW Coeff of Elias 14.3 (11.5-15.5) % Plt Count 211 (140-440) K/uL Neut % (Auto) 88.0 H (42.0-72.0) % Lymph % (Auto) 7.1 L (20-44) % [place] % (Auto) 4.4 (0.0-11.0) % Eos % (Auto) 0.1 (0.0-7.0) % Baso % (Auto) 0.1 (0.0-3.0) % Neut # (Auto) 9.70 H (1.7-7.0) K/uL Lymph # (Auto) 0.80 L (0.90-2.90) K/uL [place] # (Auto) 0.50 (0.00-0.90) K/UL Eos # (Auto) 0.00 (0.00-0.50) K/uL Baso # (Auto) 0.00 (0.00-0.30) K/uL Abs Immat Gran (auto) 0.00 (0.00-0.30) K/uL Imm/Tot Granulo (auto) 0.3 % Sodium 155 H (135-149) mmol/L Potassium 4.3 (3.6-5.1) mmol/L Chloride 118 H (96-114) mmol/L Carbon Dioxide 22 (20-32) mmol/L Anion Gap 15 (7-15) mEq/L BUN 86 H (7-30) mg/dL Creatinine 2.1 H (0.5-1.5) mg/dL Estimated GFR 31 ml/min Glucose 441 H* (60-115) mg/dL Calcium 10.3 (8.4-10.6) mg/dL Magnesium 2.5 (1.5-2.6) mg/dL Total Bilirubin 1.5 (0.1-1.5) mg/dL AST 25 (12-35) U/L ALT 25 (4-50) U/L Alkaline Phosphatase 105 (40-150) U/L Total Creatine Kinase 130 (54-186) U/L Troponin I 0.20 H* (0.01-0.04) ng/mL Total Protein 7.5 (6.0-8.3) g/dL Albumin 4.0 (3.3-5.0) g/dL Urine Color (Yellow) Urine Appearance (Clear) Urine pH (5.0-8.5) Ur Specific [place] (1.000-1.030) Urine Protein (Negative) Urine Glucose (UA) (Negative) Urine Ketones (Negative) Urine Blood (Negative) Urine Nitrite (Negative) Urine Bilirubin (Negative) Urine Urobilinogen (0.2-1.0) Ur Leukocyte Esterase (Negative) Urine RBC (0-2) Urine WBC (0-5) Ur Squamous Epith Cells (None-Few) Amorphous Sediment (None) Urine Bacteria (None) Hyaline Casts (None-Few) Fine Granular Casts (None) SARS-CoV-2 (PCR) Negative SARS-CoV-2 (Negative) Influenza Type A (PCR) Negative PCR FLU A (Negative) Influenza Type B (PCR) Negative PCR FLU B (Negative) RSV (PCR) Negative PCR RSV (Negative) Lab Acknowledgement POC Creatinine 2.2 H (0.6-1.3) mg/dl 11/08/24 11/08/24 11/08/24 Range/Units 19:54 20:33 20:46 WBC (4.50-11.00) K/uL RBC (4.30-5.90) m/uL Hgb (13.5-17.5) gm/dL Hct (37.0-53.0) % MCV (80-100) fL MCH (26-34) pg MCHC (32-36) gm/dL RDW Coeff of Elias (11.5-15.5) % Plt Count (140-440) K/uL Neut % (Auto) (42.0-72.0) % Lymph % (Auto) (20-44) % [place] % (Auto) (0.0-11.0) % Eos % (Auto) (0.0-7.0) % Baso % (Auto) (0.0-3.0) % Neut # (Auto) (1.7-7.0) K/uL Lymph # (Auto) (0.90-2.90) K/uL [place] # (Auto) (0.00-0.90) K/UL Eos # (Auto) (0.00-0.50) K/uL Baso # (Auto) (0.00-0.30) K/uL Abs Immat Gran (auto) (0.00-0.30) K/uL Imm/Tot Granulo (auto) % Sodium (135-149) mmol/L Potassium (3.6-5.1) mmol/L Chloride (96-114) mmol/L Carbon Dioxide (20-32) mmol/L Anion Gap (7-15) mEq/L BUN (7-30) mg/dL Creatinine (0.5-1.5) mg/dL Estimated GFR ml/min Glucose (60-115) mg/dL Calcium (8.4-10.6) mg/dL Magnesium (1.5-2.6) mg/dL Total Bilirubin (0.1-1.5) mg/dL AST (12-35) U/L ALT (4-50) U/L Alkaline Phosphatase (40-150) U/L Total Creatine Kinase (54-186) U/L Troponin I 0.16 H* (0.01-0.04) ng/mL Total Protein (6.0-8.3) g/dL Albumin (3.3-5.0) g/dL Urine Color Yellow (Yellow) Urine Appearance Cloudy A (Clear) Urine pH 5.5 (5.0-8.5) Ur Specific [place] 1.025 (1.000-1.030) Urine Protein 1+ A (Negative) Urine Glucose (UA) Trace A (Negative) Urine Ketones Negative (Negative) Urine Blood Negative (Negative) Urine Nitrite Negative (Negative) Urine Bilirubin 1+ A (Negative) Urine Urobilinogen 0.2 (0.2-1.0) Ur Leukocyte Esterase Negative (Negative) Urine RBC 0-2 (0-2) Urine WBC 0-2 (0-5) Ur Squamous Epith Cells Few (None-Few) Amorphous Sediment Many A (None) Urine Bacteria None (None) Hyaline Casts Many A (None-Few) Fine Granular Casts Moderate A (None) SARS-CoV-2 (PCR) (Negative) Influenza Type A (PCR) (Negative) Influenza Type B (PCR) (Negative) RSV (PCR) (Negative) Lab Acknowledgement Test Added POC Creatinine (0.6-1.3) mg/dl Imaging Data CT scan head: Attestation: I have reviewed the pertinent imaging results. Radiologist's impression: 1. No acute intracranial process. 2. Severe chronic ischemic microvascular disease. 3. Scattered encephalomalacia gliosis left frontal and parietal lobes. Please note that all CT scans at this facility use dose modulation, iterative reconstruction, and/or weight-based dosing when appropriate to reduce radiation dose to as low as reasonably achievable. Dictated by Jose Ding MD @ 11/08/2024 8:52:[address] scan cervical spine: Attestation: I have reviewed the pertinent imaging results. Radiologist's impression: 1. No acute osseous injury involving the cervical spine. 2. Moderate spondylosis. Please note that all CT scans at this facility use dose modulation, iterative reconstruction, and/or weight-based dosing when appropriate to reduce radiation dose to as low as reasonably achievable. Dictated by Jose Ding MD @ 11/08/2024 8:55:[address] scan chest: Attestation: I have reviewed the pertinent imaging results. Radiologist's impression: 1. Severe atherosclerotic calcifications are noted in the coronary arteries. 2. Interval development of a mild compression deformity along the superior endplate of T11 and is of indeterminate age. Dictated by Lenny Christopher MD @ 11/08/2024 9:12:29 PM Please note that all CT scans at this facility use dose modulation, iterative reconstruction, and/or weight-based dosing when appropriate to reduce radiation dose to as low as reasonably achievable. Dictated by: Lenny Christopher MD @ 11/08/2024 21:12:32 CT scan abdomen pelvis: Attestation: I have reviewed the pertinent imaging results. Radiologist's impression: 1. A massive amount of stool is present in the rectal vault. Correlation with physical exam recommended to exclude fecal impaction. 2. Moderate enlargement of the prostate gland is noted. Correlation with physical examination, PSA level, and/or MRI are recommended. 3. There is an oblong fluid collection running along the course of the right iliopsoas muscle measuring 7 x 1 cm extending inferiorly from the anterolateral disc space of L4-5. It has small foci of internal gas present. The possibility of a paraspinal abscess should be considered. Dictated by Lenny Christopher MD @ 11/08/2024 9:06:34 PM Please note that all CT scans at this facility use dose modulation, iterative reconstruction, and/or weight-based dosing when appropriate to reduce radiation dose to as low as reasonably achievable. Dictated by: Lenny Christopher MD @ 11/08/2024 21:06:37 ECG Data Attestation: I personally reviewed and interpreted this ECG as follows: Prior ECG tracings: not available for review Interpretation: Sinus tachycardia with rate much 17 beats per minute, bifascicular block normal intervals, normal axis, no ST or T-wave abnormalities. Discharge Plan Discharge Clinical Impression: End of life care, Acute hyperglycemia, Acute hypernatremia, Abscess Altered mental status Qualifiers: Altered mental status type: somnolence Qualified Code(s): R40.0 - Somnolence Constipation Qualifiers: Constipation type: unspecified constipation type Qualified Code(s): K59.00 - Constipation, unspecified Patient Disposition: Admitted As Observation Condition: Guarded
--- NOTE | 2024-11-08 19:00 | P.IMHP_ITS ---
Assessment and Plan Assessment and plan (1) Spinal abscess: Status: Acute (2) Type 2 diabetes mellitus: Status: Acute (3) Altered mental status: Status: Acute (4) Severe dementia: Status: Acute (5) Acute hypernatremia: Status: Acute (6) Acute hyperglycemia: Status: Acute (7) End of life care: Status: Acute Hospitalist- H&P: HPI History of Present Illness Date Seen: 11/08/24 Chief complaint: not eating, drinking, weak, weightloss, fatigue Narrative: ADMISSION HISTORY AND PHYSICAL - HOSPITALIST Chief Complaint: HPI: Patient is a 84-year-old with a history of dementia he is usually able to walk and talk without issue presenting to emergency department for weakness and altered mental status. He is here with his children. They state that over the past week to week and a half he has had decreased oral intake has been very weak, has been losing weight, and has been less talkative. They state he is b tavia gotten out of bed for the past week due to his weakness. This is very unusual for him despite his dementia. They state usually is talking to you no problem although it is occasionally confusing and he is able to get up and move by himself. Or now he is barely talking. Usually he eats normal foods and feeds himself but now he is only taking pureed food if that. He was able eat some pureed food this morning. They have been trying to have him drink fluids. They have not noticed any choking episode after drinking fluids. Of note noticed any fevers or chills. Have not noticed any difficulty breathing. Patient is unable answer questions. Family does states he fell a couple days ago. ER COURSE: comprehensive workup: CT Chest/abd/pelvis, labs. CODE STATUS: DNR/DNI EMERGENCY CONTACT PLAN: Arjun Bains Rel To Pat Son Cell I've updated the PFSH, medications and allergies in the Expanse tabs. INVESTIGATIONS: LABS/MICRO/ECG/IMAGING Vitals upon arrival to the ED and floor show that he is afebrile Blood pressure has been as high as 152/84 and as low as 89/56. Currently 106/61 Pulse has been 116 down to 91 He is 94% on room air Weight is 71 kilos Multiple chemistry abnormalities to include a sodium of 155, creatinine of 2.1, glucose of 441, and elevated troponin is 0.2 Negative viral pathogens Multiple imaging exams: Head CT shows no acute intracranial process. However there is severe chronic ischemic microvascular disease and scattered encephalomalacia Chest CT shows severe atherosclerotic calcifications and development of a T11 compression fracture CT spine was negative CT abdomen pelvis: Massive stool noted in the rectal vault. Possible paraspinal abscess noted at the L4-L5 anterolateral disc space. 7 x 1 cm. Internal gas noted. REVIEW OF SYSTEMS: 12-point ROS completed with patient and negative unless otherwise stated in HPI or below. PHYSICAL EXAM: CONSTITUTIONAL: GENERAL: VITAL SIGNS: see record. HEENT: Sclerae are anicteric. No petechiae. CARDIAC: rhythm is regular. There is no S3 or rub. No harsh murmurs. Extremities show trace edema with symmetrical pulses. PULM: good air entry with no wheeze. NEURO: SKIN: No rashes, petechiae, concerning changes PSYCHIATRIC: Euthymic. ADMIT TO MEDSURG: FLOOR CARE DVT: GI: PO intake Time spent: Today I spent 75 minutes seeing the patient, discussing the patient with ER staff, reviewing Expanse and EPIC notes/diagnostics, discussing the care plan with our care time that includes social work, PT/OT, pharmacy, RT, mcc and documenting my impressions and plan in the medical record. [facility] Medical History (Updated 11/09/24 @ 00:28 by Shirley Reilly MD) Severe dementia ?F03.C0 - Unspecified dementia, severe, without behavioral disturbance, psychotic disturbance, mood disturbance, and anxiety (ICD-10) Surgical History (Updated 11/08/24 @ 19:00 by Shirley Reilly MD) Bariatric surgery status ?Z98.84 - Bariatric surgery status (ICD-10) Total knee replacement status ?Z96.659 - Presence of unspecified artificial knee joint (ICD-10) Social History Highest level of school completed/degree received: high school graduate Smoking Status: Never smoker Second hand tobacco smoke exposure: No How often do you have a drink containing alcohol: never How often do you have six or more drinks on one occasion: Never AUDIT-C Alcohol total score: 0 Non-prescribed substance use: denies use Caffeine: Yes (2CUPS COFFEE DAILY) service: Yes Meds Home Medications and Allergies Home Medications ?Medication ?Instructions ?Recorded ?Confirmed ?Type metformin 500 mg tablet 500 mg PO BID 06/20/22 06/20/22 History Allergies Allergy/AdvReac Type Severity Reaction Status Date / Time No Known Drug Allergies Allergy Verified 06/19/22 20:21 Exam Const: Vital Signs, click to edit/add: Vital Signs - 24 hr 11/08/24 17:41 11/08/24 17:53 11/08/24 18:00 Temperature 96.1 F L Pulse Rate Pulse Rate [Apical ] 120 H Blood Pressure 117/77 116/82 Blood Pressure [Le ft Upper Arm] 89/56 L Pulse Oximetry Oxygen Delivery Me thod 11/08/24 18:31 Temperature Pulse Rate 116 H Pulse Rate [Apical ] Blood Pressure 122/82 Blood Pressure [Le ft Upper Arm] Pulse Oximetry 93 Oxygen Delivery Pa thod Room Air Hospitalist - H&P: Result Labs Labs: Short CBC 11/08/24 Range/Units 18:23 WBC 11.03 H (4.50-11.00) K/uL Hgb 16.4 (13.5-17.5) gm/dL Hct 51.1 (37.0-53.0) % Plt Count 211 (140-440) K/uL BMP 11/08/24 18:23 Sodium 155 H Potassium 4.3 Chloride 118 H Carbon Dioxide 22 BUN 86 H Creatinine 2.1 H Glucose 441 H* Calcium 10.3 Liver Function 11/08/24 Range/Units 18:23 Total Bilirubin 1.5 (0.1-1.5) mg/dL AST 25 (12-35) U/L ALT 25 (4-50) U/L Alkaline Phosphatase 105 (40-150) U/L Albumin 4.0 (3.3-5.0) g/dL
[2024-11-08 19:09] LABS: PCR FLU A Negative PCR FLU A (Negative); PCR FLU B Negative PCR FLU B (Negative); PCR RSV Negative PCR RSV (Negative); SARS PCR* Negative SARS-CoV-2 (Negative)
[2024-11-08 20:07] LABS: Creatine Kinase* 130 U/L (54-186)
[2024-11-08 20:42] LABS: Appearance Urine Cloudy (Clear); Bilirubin Urine 1+ (Negative); Blood Urine Negative (Negative); Color Urine Yellow (Yellow); Glucose Urine Trace (Negative); Ketones Urine Negative (Negative); Leukocyte Esterase Urine Negative (Negative); Nitrite Urine Negative (Negative); Protein Urine 1+ (Negative); Specific Gravity Urine 1.025 (1.000-1.030); Urobilinogen Urine 0.2 (0.2-1.0); pH Urine 5.5 (5.0-8.5)
[2024-11-08 20:54] LABS: Amorphous Sediment Urine Many; RBC Urine 0-2 (0-2); Squamous Epithelial Cell Urine Few (None-Few); WBC Urine 0-2 (0-5)
[2024-11-08 20:55] LABS: Fine Granular Casts Urine Moderate; Hyaline Casts Urine Many (None-Few)
[2024-11-08 21:33] LABS: Troponin I* 0.16 ng/mL (0.01-0.04)
[2024-11-09] MEDS: fentaNYL 25 MCG/HR PATCH 1 PATCH TRANSDERMA (00:58)
[2024-11-09] MEDS: MORPHINE 10 MG/0.5 ML ORAL SOLN PO ×2 (01:53→22:14)
[2024-11-09] MEDS: lidocaine HCL 2 % JELLY (TOP) STERILE 6 ML UR (01:55)
--- NOTE | 2024-11-09 07:06 | PC.NURSE ---
Pt oriented to self only. Pt's flores catheter is patent and draining. Pt was turned and repositioned throughout night. Pain managed with PRN medications.
[2024-11-09 08:06] VITALS: BP 110/65; PULSE 93; RESP 12; TEMP 36.6; O2SAT 94
--- NOTE | 2024-11-09 14:06 | PC.SOCIAL ---
Discharge planning: Per MD request for hospice care for pt planned for discharge home tomorrow, called dtr Renita [phone] and left message requesting alise back. hide worker to follow up as needed.
--- NOTE | 2024-11-09 16:29 | P.IMPN_ITS ---
Assessment and Plan Assessment and plan (1) Palliative care encounter: Problem comment: Discussion with family about his current health status, quality of life, goals of care and plan of care. Ultimately family would like him to be discharged to home for hospice care. At this point I anticipate prognosis is a a few days up to a week Status: Acute (2) Severe dementia: Status: Acute (3) Altered mental status: Problem comment: Dementia plus acute illness causing acute altered mental status Status: Acute (4) Paraspinal abscess: Problem comment: Likely the cause of acute on chronic decline in the last several days Status: Acute (5) Acute hypernatremia: Problem comment: Due to poor oral intake Status: Acute (6) Acute hyperglycemia: Problem comment: Due to acute illness with infection Status: Acute Plan Continue in-hospital for monitoring of palliative care pending discharge to home with hospice care Total Time Spent Total Time Spent: Total time spent today is 45 minutes in coordination of care and discussing with family ongoing evaluation management of end of life care Subjective Date Seen: 11/09/24 Interval history: Patient is a 84-year-old with a history of dementia he is usually able to walk a nd talk without issue presenting to emergency department for weakness and altered mental status. He is here with his children. They state that over the past week to week and a half he has had decreased oral intake has been very weak, has been losing weight, and has been less talkative. They state he is barely gotten out of bed for the past week due to his weakness. This is very unusual for him despite his dementia. They state usually is talking to you no problem although it is occasionally confusing and he is able to get up and move by himself. Or now he is barely talking. Usually he eats normal foods and feeds himself but now he is only taking pureed food if that. He was able eat some pureed food this morning. They have been trying to have him drink fluids. They have not noticed any choking episode after drinking fluids. Of note noticed any fevers or chills. Have not noticed any difficulty breathing. Patient is unable answer questions. Family does states he fell a couple days ago. 11/09/2024: Patient is now sleep and difficult to arouse. Discussed with his daughter who is his primary caregiver and daughter in-law ongoing plan of care. He has had a chronic decline which has become acutely worse in the last week and a half with poor oral intake being more tired, talking less, getting too weak to walk. In the emergency department he was found to have a paraspinal abscess in the area of the right iliopsoas muscle and L4-5. In discussion with the patient's family in the emergency department and in the inpatient setting and decision was made to moved to palliative care rather than initiate treatment for this paraspinal abscess. He was treated with comfort measures including a Duragesic patch and has now been primarily sleeping. He has been to able to eber e a minimal amount of oral food and fluid according to his daughter. She is requesting that he come home with her for hospice care in their home. Exam Narrative: Exam Narrative: He is sleeping at the time I see him and does not arouse to touch or voice. Appears to be breathing comfortably. Respirations are clear. Cardiovascular: S1, S2, regular rate and rhythm. Abdomen is soft without tenderness. Overall he appears cachectic Const: Vital Signs, click to edit/add: Vital Signs - 24 hr 11/08/24 17:41 11/08/24 17:53 11/08/24 18:00 Temperature 96.1 F L Pulse Rate Pulse Rate [Apical ] 120 H Pulse Rate [Pulse Oximeter] Respiratory Rate Blood Pressure 117/77 116/82 Blood Pressure [Le ft Upper Arm] 89/56 L Blood Pressure [Ri ght Arm] Pulse Oximetry Oxygen Delivery Me thod 11/08/24 18:31 11/08/24 18:41 11/08/24 19:02 Temperature Pulse Rate 116 H 112 H 105 H Pulse Rate [Apical ] Pulse Rate [Pulse Oximeter] Respiratory Rate Blood Pressure 122/82 117/82 141/82 H Blood Pressure [Le ft Upper Arm] Blood Pressure [Ri ght Arm] Pulse Oximetry 93 95 95 [facility] 11/08/24 19:21 11/08/24 19:42 11/08/24 20:51 Temperature Pulse Rate 103 H 102 H 95 Pulse Rate [Apical ] Pulse Rate [Pulse Oximeter] Respiratory Rate 16 Blood Pressure 152/84 H 135/89 98/62 Blood Pressure [Le ft Upper Arm] Blood Pressure [Ri ght Arm] Pulse Oximetry 94 95 95 Oxygen Delivery Dc thod 11/08/24 21:53 11/08/24 22:23 11/08/24 23:45 Temperature 97.3 F L 97.3 F L Pulse Rate 96 Pulse Rate [Apical ] 91 91 Pulse Rate [Pulse Oximeter] Respiratory Rate 18 18 Blood Pressure 106/61 Blood Pressure [Le ft Upper Arm] 106/61 106/61 Blood Pressure [Ri ght Arm] Pulse Oximetry 96 94 Oxygen Delivery Me thod Room Air 11/08/24 23:58 11/08/24 23:58 11/09/24 08:06 Temperature 99.1 F 98 F Pulse Rate Pulse Rate [Apical ] Pulse Rate [Pulse Oximeter] 96 93 Respiratory Rate 20 12 Blood Pressure Blood Pressure [Le ft Upper Arm] Blood Pressure [Ri ght Arm] 89/54 L 110/65 Pulse Oximetry 95 94 Oxygen Delivery Me thod Room Air Room Air Room Air Documenting provider has reviewed patient's vital signs: yes Labs Labs: Laboratory Results - last 24 hr 11/08/24 11/08/24 11/08/24 18:06 18:22 18:23 WBC 11.03 H RBC 5.18 Hgb 16.4 Hct 51.1 MCV 99 MCH 32 MCHC 32 RDW Coeff of Elias 14.3 Plt Count 211 Neut % (Auto) 88.0 H Lymph % (Auto) 7.1 L [place] % (Auto) 4.4 Eos % (Auto) 0.1 Baso % (Auto) 0.1 Neut # (Auto) 9.70 H Lymph # (Auto) 0.80 L [place] # (Auto) 0.50 Eos # (Auto) 0.00 Baso # (Auto) 0.00 Abs Immat Gran (auto) 0.00 Imm/Tot Granulo (auto) 0.3 Sodium 155 H Potassium 4.3 Chloride 118 H Carbon Dioxide 22 Anion Gap 15 BUN 86 H Creatinine 2.1 H Estimated GFR 31 Glucose 441 H* Calcium 10.3 Magnesium 2.5 Total Bilirubin 1.5 AST 25 ALT 25 Alkaline Phosphatase 105 Total Creatine Kinase 130 Troponin I 0.20 H* Total Protein 7.5 Albumin 4.0 Urine Color Urine Appearance Urine pH Ur Specific Deer Urine Protein Urine Glucose (UA) Urine Ketones Urine Blood Urine Nitrite Urine Bilirubin Urine Urobilinogen Ur Leukocyte Esterase Urine RBC Urine WBC Ur Squamous Epith Cells Amorphous Sediment Urine Bacteria Hyaline Casts Fine Granular Casts SARS-CoV-2 (PCR) Negative SARS-CoV-2 Influenza Type A (PCR) Negative PCR FLU A Influenza Type B (PCR) Negative PCR FLU B RSV (PCR) Negative PCR RSV Lab Acknowledgement POC Creatinine 2.2 H 11/08/24 11/08/24 11/08/24 19:54 20:33 20:46 WBC RBC Hgb Hct MCV MCH MCHC RDW Coeff of Elias Plt Count Neut % (Auto) Lymph % (Auto) [place] % (Auto) Eos % (Auto) Baso % (Auto) Neut # (Auto) Lymph # (Auto) [place] # (Auto) Eos # (Auto) Baso # (Auto) Abs Immat Gran (auto) Imm/Tot Granulo (auto) Sodium Potassium Chloride Carbon Dioxide Anion Gap BUN Creatinine Estimated GFR Glucose Calcium Magnesium Total Bilirubin AST ALT Alkaline Phosphatase Total Creatine Kinase Troponin I 0.16 H* Total Protein Albumin Urine Color Yellow Urine Appearance Cloudy A Urine pH 5.5 Ur Specific Deer 1.025 Urine Protein 1+ A Urine Glucose (UA) Trace A Urine Ketones Negative Urine Blood Negative Urine Nitrite Negative Urine Bilirubin 1+ A Urine Urobilinogen 0.2 Ur Leukocyte Esterase Negative Urine RBC 0-2 Urine WBC 0-2 Ur Squamous Epith Cells Few Amorphous Sediment Many A Urine Bacteria None Hyaline Casts Many A Fine Granular Casts Moderate A SARS-CoV-2 (PCR) Influenza Type A (PCR) Influenza Type B (PCR) RSV (PCR) Lab Acknowledgement Test Added POC Creatinine
--- NOTE | 2024-11-09 16:52 | PC.SOCIAL ---
Discharge planning: Met with dtr in law and dtjoseph Maravilla by phone regarding discharge plan. Family is requesting hospice arranged for home and hopes pt can be discharged home tomorrow. Provided family with list of hospice agencies serving this area. Family would like health social work professor to contact [facility], [facility] or [facility]. Family would like an agency that can start tomorrow. Called [facility] and spoke with Linda who states they can start services tomorrow with an intake time of 2:00 at home. Met with family who is pleased with this plan. Provided them with written information on hospice services and [facility] flmiguel. Answered all family questions. Family is requesting transport home by ambulance and is aware and agree with private pay rate of about $120. workers compensation attorney faxed requested information to [facility] and will follow up tomorrow as needed.
--- NOTE | 2024-11-09 18:05 | PC.NURSE ---
End of Shift: Patient open eye but is nonresponsive. Morning vitals stable, lungs clear, BS WNL , IV SL and intact. Patient turn and repoed q2H, mouth moistened with swabs and lip moistener. Salmeron draining bloody urine. Fentanyl patch on left shoulder. Family visiting throughout day.
[2024-11-09] MEDS: SODIUM CHLORIDE 0.9 % (FLUSH) 10 ML SYRINGE 5 ML IVF (22:14)
--- NOTE | 2024-11-10 05:50 | PC.NURSE ---
Addendum entered by Rose Edwards RN 11/10/24 07:02: Fentanyl patch to L. shoulder blade present and intact. Original Note: [id number]: Patient on comfort cares. Frequent T&R. Oral care. Salmeron patent draining small amounts of bloody urine. PRN Roxanol x2 for restlessness. Family at bedside.
[2024-11-10] MEDS: MORPHINE 10 MG/0.5 ML ORAL SOLN PO (06:16)
[2024-11-10] MEDS: SODIUM CHLORIDE 0.9 % (FLUSH) 10 ML SYRINGE 5 ML IVF (09:17)
--- NOTE | 2024-11-10 11:15 | PM.DS1 ---
DS: Providers Provider Date Seen: 11/10/24 Date of admission: 11/08/24 23:17 Primary care physician: Paolo Funes MD Admitting Clinician: Shirley Reilly MD Attending Physician on discharge: Alfonso Etienne MD Date of Discharge: 11/10/24 DS: Diagnosis Discharge Diagnosis (1) Palliative care encounter: Status: Acute Problem details: Discussion with family about his current health status, quality of life, goals of care and plan of care. Ultimately family would like him to be discharged to home for hospice care. At this point I anticipate prognosis is a a few days up to a week (2) Severe dementia: Status: Acute (3) Altered mental status: Status: Acute Problem details: Dementia plus acute illness causing acute altered mental status (4) Paraspinal abscess: Status: Acute Problem details: Likely the cause of acute on chronic decline in the last several days (5) Acute hypernatremia: Status: Acute Problem details: Due to poor oral intake (6) Acute hyperglycemia: Status: Acute Problem details: Due to acute illness with infection DS: Summary Hospital Course Hospital Course: Admission HPI: Patient is a 84-year-old with a history of dementia he is usually able to walk and talk without issue presenting to emergency department for weakness and altered mental status. He is here with his children. They state that over the past week to week and a half he has had decreased oral intake has been very weak, has been losing weight, and has been less talkative. They state he is barely gotten out of bed for the past week due to his weakness. This is very unusual for him despite his dementia. They state usually is talking to you no problem although it is occasionally confusing and he is able to get up and move by himself. Or now he is barely talking. Usually he eats normal foods and feeds himself but now he is only taking pureed food if that. He was able eat some pureed food this morning. They have been trying to have him drink fluids. They have not noticed any choking episode after drinking fluids. Of note noticed any fevers or chills. Have not noticed any difficulty breathing. Patient is unable answer questions. Family does states he fell a couple days ago. Discussed with his daughter who is his primary caregiver and daughter in-law ongoing plan of care. He has had a chronic decline which has become acutely worse in the last week and a half with poor oral intake being more tired, talking less, getting too weak to walk. In the emergency department he was found to have a paraspinal abscess in the area of the right iliopsoas muscle and L4-5. In discussion with the patient's family in the emergency department and in the inpatient setting and decision was made to moved to palliative care rather than initiate treatment for this paraspinal abscess. He was treated with comfort measures including a Duragesic patch and has now been primarily sleeping. He has been to able to take a minimal amount of oral food and fluid according to his daughter. She is requesting that he come home with her for hospice care in their home. He has been quite sleepy. He does arouse minimally. Very minimal oral intake. Minimal urine output. Prognosis is a few days. Status at Discharge Functional status at discharge: bed bound Overall status at discharge: other (Terminally ill. Prognosis is within a few days) Time Spent with Patient Time attestation: Total time spent providing and/or coordinating discharge services: Time spent: Less than 30 minutes Exam Narrative: Exam Narrative: Sleeping. Minimally arouses to voice and touch. Appears comfortable. Breathing is unlabored. DS: Data Data Completed and Pending Completed studies during hospitalization: Procedures Imaging CT scan - abdomen: Radiologist's impression: INDICATION: Weakness, diffuse abdominal pelvic pain TECHNIQUE: CT Abdomen and pelvis with i.v. contrast. Coronal and sagittal reformats were obtained. CONTRAST: 77 mL Isovue 370 COMPARISON: 06/19/2022 FINDINGS: Liver: Mild fatty infiltration of the liver is present. Spleen: Unremarkable. Pancreas: Unremarkable. Gallbladder: Unremarkable. Kidney: Unremarkable. No kidney or ureteral stones or obstruction seen. Adrenal: Unremarkable. Bowel: A massive amount of stool is present in the rectal vault. Previous antegastric-antecolic gastric bypass noted with no definite obstruction of the biliopancreatic limb or Devan-en-Y loop seen. The appendix is normal in appearance and size. Vascular: Unremarkable. Lymph: Unremarkable. Peritoneum: Unremarkable. No pneumoperitoneum is seen. Pelvis: There is a new fluid density structure measuring 3.4 x 2.2 cm in the left inguinal canal which may represent a small inguinal hernia with ascitic fluid. The right inguinal hernia seen on prior examination is no longer visualized. Moderate enlargement of the prostate gland is noted. Soft tissue: There is an oblong fluid collection running along the course of the right iliopsoas muscle measuring 7 x 1 cm extending inferiorly from the anterolateral disc space of L4-5. It has small foci of internal gas present. Bone: Unremarkable for age. IMPRESSIONS: 1. A massive amount of stool is present in the rectal vault. Correlation with physical exam recommended to exclude fecal impaction. 2. Moderate enlargement of the prostate gland is noted. Correlation with physical examination, PSA level, and/or MRI are recommended. 3. There is an oblong fluid collection running along the course of the right iliopsoas muscle measuring 7 x 1 cm extending inferiorly from the anterolateral disc space of L4-5. It has small foci of internal gas present. The possibility of a paraspinal abscess should be considered. Discharge Plan Discharge Disposition: Xfer Home- (Hospice) Date of Admission: 11/08/24 23:17 Attending Provider on Discharge: Barrett Etienne Primary Care Provider: Paolo Funes Condition: Guarded Anticipated Discharge Date/Time: 11/10/24 11:00 Discharge Medications: New acetaminophen 325 mg Tablet 325 - 975 mg PO Q6H PRNQty: 100 0RF fentanyl 25 mcg/hr Patch 72 Hour 1 patch transdermal Q72H Qty: 5 0RF morphine concentrate 10 mg/0.5 mL Syringe 10 mg PO Q1H PRNQty: 30 0RF Discharge Orders: Discharge Order (Routine); Ordered 11/10/24 Ordered By: Barrett Etienne Additional Instructions: Discharge to home with hospice Activity Level: Other Activity Detail: reposition in bed Discharge Diet: Regular Diet Detail: May have small amounts of food or liquid for comfort if he is awake enough to swallow and can sit up Follow Up Appointments: Paolo Funes MD [Primary Care Provider] - [facility]
--- NOTE | 2024-11-10 11:35 | PC.NURSE ---
Pt resting comfortably. Son, Dave, at bedside. Fentanyl patch remained in place on pt's left shoulder blade. Salmeron remained in place at discharge. Patient was discharged to daughter's home via EMS at approximately 1130. Paper work for [facility] was sent with pt.
--- NOTE | 2024-11-10 12:10 | PC.SOCIAL ---
Discharge planning: Prior to discharge, confirmed [facility] will open pt to Hospice services today at 2:00. Faxed discharge orders to [facility] and confirmed receipt of fax and discharge plans with [facility] social workerLinda. Met with family in room and confirmed discharge plans. Pt was transported home by EMS.
== END 2024-11-10 11:30 | disposition hospice, home (50) ==
LOC: ED 22:38 → MEDSURG 23:18
PROVIDERS: Admitting Provider Family Medicine; Emergency Provider Student in an Organized Health Care Education/Training Program; PCP Family Medicine; Visit Provider Family Medicine
DX: Z51.5 Encounter for palliative care (principal); M46.26 Osteomyelitis of vertebra, lumbar region; K59.09 Other constipation; E87.0 Hyperosmolality and hypernatremia; R79.89 Other specified abnormal findings of blood chemistry; E11.65 Type 2 diabetes mellitus with hyperglycemia; N17.9 Acute kidney failure, unspecified; R41.82 Altered mental status, unspecified; F03.C0 Unspecified dementia, severe, without behavioral disturbance, psychotic disturbance, mood disturbance, and anxiety; R00.0 Tachycardia, unspecified; R63.4 Abnormal weight loss; R53.1 Weakness; Z79.84 Long term (current) use of oral hypoglycemic drugs; Z66 Do not resuscitate
CPT/HCPCS: 36415; 70450; 71250; 72125; 74177; 80053; 81001; 82550; 82565; 83735; 84484; 85025; 87631; 93005; 99285; A9270; G0378; J7120; Q9967

== ENCOUNTER 2024-11-10 11:25 | Outpatient (CLI) | payer MEDICARE, SELFPAY | END 2024-11-10 11:26 | disposition home or self-care (01) | LOC: AMB 11-20 10:39 | PROVIDERS: PCP Family Medicine; Visit Provider Family Medicine | DX: R41.82 Altered mental status, unspecified (principal); F03.90 Unspecified dementia, unspecified severity, without behavioral disturbance, psychotic disturbance, mood disturbance, and anxiety; Z99.81 Dependence on supplemental oxygen | CPT/HCPCS: A0425; A0428 ==